=== PATIENT | female | born 1990 | race Caucasian/White ===

== ENCOUNTER 2021-02-23 09:45 | Emergency (ER) | payer OTHER ==
[~2021-02-23] VITALS: Ht 170.2 cm; Wt 68.0 kg
[~2021-02-23 09:45] MED LIST: AMLODIPINE BESY10 MG PO; LABETALOL HCL200 MG PO; LISINOPRIL40 MG PO; LORAZEPAM1 MG PO; TAPAZOLE10 MG PO
[2021-02-23] MEDS ORDERED: METOPROLOL SUCC25 MG PO (10:18)
[2021-02-23] MEDS ORDERED: SUBOXONE 12 MG1 EACH SL (10:19)
[2021-02-23] MEDS ORDERED: BUPRENORP-NALO1 EAC1 SL (10:20)
[2021-02-23] MEDS ORDERED: QUETIAPINE FUM400 M1 PO (10:20)
--- OUTSIDE RECORDS SUMMARY | 2021-02-23 14:27 | XMS ---
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 HAWKINS Security Label Pinker Events No recent Security Events currently on file CRITERIA MET - [facility] - Has Care Guidelines - History of Sepsis Dx CARE PROVIDERS Vero Mccauley Community Health Worker 08/10/2018-Current Nakul Calvert PHONE: [phone] Torri De Leon Nurse Practitioner: Family Michael BORDEN-Bernard PHONE: [phone] Guidelines [facility] [place] Guidelines Date: 12/21/2019 Care Coordination: Receives mental health services with [facility].\T\nbsp; Please contact [facility] regarding mental health concerns. [place] Office: [phone], [place] Office: [phone].\T\nbsp; [facility]: [phone]. E.D. VISIT COUNT (12 MO.) 1 [facility] TOTAL 1 NOTE: Visits indicate total known visits. ED/UCC VISIT TRACKING (12 MO.) 02/23/2021 09:45 [facility] [place] TYPE: Emergency COMPLAINT: - MEDICAL SCREEN INPATIENT VISIT TRACKING (12 MO.) No inpatient visits to display in this time frame [email or web address]
== END 2021-02-24 16:30 ==
LOC: ED 09:45
DX: Z00.8 Encounter for other general examination (principal); Z20.822 Contact with and (suspected) exposure to COVID-19; I10 Essential (primary) hypertension; Z88.8 Allergy status to other drugs, medicaments and biological substances; Z79.899 Other long term (current) drug therapy
CPT/HCPCS: 80053; 80176; 81001; 84443; 84703; 85025; 99285; A9270; C9803; U0003

== ENCOUNTER 2021-03-16 12:49 | Emergency (ER) | payer OTHER ==
[~2021-03-16] VITALS: Ht 170.2 cm; Wt 68.0 kg
[~2021-03-16 12:49] MED LIST changes: +ATIVAN1 MG PO; +BUPRENORP-NALO1 EAC1 SL; +BUPRENORPHINE HC2 MG SL; +FLUOXETINE HCL20 MG PO; +METOPROLOL SUCC25 MG PO; +NORVASC10 MG PO; +QUETIAPINE FUM400 M1 PO; +SUBOXONE 12 MG1 EACH SL; +TOPROL XL25 MG PO; +ZESTRIL10 MG PO
--- OUTSIDE RECORDS SUMMARY | 2021-03-16 12:58 | XMS ---
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 HAWKINS Security Piece Dyeing Machine Tender Events No recent Security Events currently on file CRITERIA MET - [facility] - Has Care Guidelines - History of Sepsis Dx - [facility] - 2 Visits in 30 Days CARE PROVIDERS Vero Mccauley Community Health Worker 08/10/2018-Current Nakul Calvert PHONE: [phone] Torri De Leon Nurse Practitioner: Family Michael DENTON PHONE: [phone] [facility] Guidelines Date: 12/21/2019 Care Coordination: Receives mental health services with [facility].\T\nbsp; Please contact [facility] regarding mental health concerns. [place] Office: , [place] Office: [phone].\T\nbsp; [facility]: [phone]. E.D. VISIT COUNT (12 MO.) 3 [facility] TOTAL 3 NOTE: Visits indicate total known visits. 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 MDD SEVERE W/O PSYCH FEATURES 0. Major depressive disorder, recurrent severe without psychotic features 0. Unspecified psychosis not due to a substance or known physiological condition 1. Major depressive disorder, recurrent severe without psychotic features 1. Generalized anxiety disorder 2. Essential (primary) hypertension 2. Unspecified psychosis not due to a substance or known physiological condition 2. Homicidal ideations 2. Post-traumatic stress disorder, unspecified 2. Major depressive disorder, recurrent severe without psychotic features 2. Disorder of kidney and ureter, unspecified 2. Systemic lupus erythematosus, unspecified [email or web address]
[2021-03-16] MEDS ORDERED: ARIPIPRAZOLE10 MG PO (13:11)
[2021-03-16] MEDS ORDERED: TRAZODONE HCL100 MG PO (13:12)
--- NOTE | 2021-03-17 03:13 | EKG ---
[facility] [address] [place], [place] [address] Signed Sinus tachycardia Otherwise normal ECG When compared with ECG of 10-AUG-2018 05:32, No significant change was found Confirmed by LEAH EGAN MD ([id number]) on 03/17/2021 3:13:26 AM Electronically Signed By: LEAH EGAN MD 03/17/21 0313 PATIENT NAME: CAPRICE HAWKINS Electrocardiogram DATE OF : 89 PHYSICIAN: LEAH EGAN MD REPORT #: [id number] REPORT IS CONFIDENTIAL AND NOT TO BE RELEASED WITHOUT AUTHORIZATION
== END 2021-03-18 16:30 ==
LOC: ED 12:49
DX: F30.2 Manic episode, severe with psychotic symptoms (principal); Z20.822 Contact with and (suspected) exposure to COVID-19; I10 Essential (primary) hypertension; F17.200 Nicotine dependence, unspecified, uncomplicated; Z88.8 Allergy status to other drugs, medicaments and biological substances; Z79.899 Other long term (current) drug therapy
CPT/HCPCS: 80053; 80176; 81001; 84443; 84703; 85025; 93005; 93010; 96372; 99285-25; C9803; J1630; U0003

== ENCOUNTER 2023-04-21 12:47 | Emergency (ER) | payer OTHER ==
[~2023-04-21] VITALS: Ht 170.2 cm; Wt 88.0 kg
[~2023-04-21 12:47] MED LIST changes: +ARIPIPRAZOLE10 MG PO; +TRAZODONE HCL100 MG PO
--- OUTSIDE RECORDS SUMMARY | 2023-04-21 12:50 | XMS ---
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 HAWKINS Security Tours Captain Events No recent Security Events currently on file CRITERIA MET - [facility] CARE PROVIDERS -[place]- Dentist: Belt [facility] PHONE: [phone] Nimisha Valiente Nurse Practitioner: Family 03/17/2021-Current PHONE: Unknown Vero Mccauley Community Health Worker 08/10/2018-Nakul Mullins PHONE: [phone] Torri De Leon Nurse Practitioner: Family Michael BORDEN-Bernard PHONE: Unknown LOUIS CARO Nurse Practitioner: Family Current PHONE: [phone] Care Guidelines exist [facility] the following facilities[facility] VISIT COUNT (12 MO.) 1 [facility] TOTAL 1 NOTE: Visits indicate total known visits. ED/UCC VISIT TRACKING (12 MO.) 04/21/2023 12:[address] [facility] [place] TYPE: Emergency COMPLAINT: - MEDICAL CLEARANCE INPATIENT VISIT TRACKING (12 MO.) No inpatient visits to display in this time frame [id number]
[2023-04-21] MEDS ORDERED: DEXTROAMP-AMPHE15 MG PO (13:03)
[2023-04-21] MEDS ORDERED: LISINOPRIL40 MG PO (13:04)
[2023-04-21] MEDS ORDERED: ALPRAZOLAM0.5 MG PO (13:05)
[2023-04-21] MEDS ORDERED: BUPRENORPHINE-1 EACH SL (13:08)
[2023-04-22 18:49] VITALS: BP 146/99
== END 2023-04-22 18:48 ==
LOC: ED 12:47
DX: F25.9 Schizoaffective disorder, unspecified (principal); F31.9 Bipolar disorder, unspecified; I10 Essential (primary) hypertension; F17.200 Nicotine dependence, unspecified, uncomplicated; Z88.8 Allergy status to other drugs, medicaments and biological substances; Z20.822 Contact with and (suspected) exposure to COVID-19; Z79.899 Other long term (current) drug therapy
CPT/HCPCS: 36415; 80053; 81001; 84443; 84703; 85025; A9270; C9803; G0480; U0002

== ENCOUNTER → 2023-05-13 | Emergency (ER) | payer OTHER ==
[~2023-05-13] VITALS: Ht 170.2 cm; Wt 88.0 kg
[~2023-05-13] MED LIST changes: +ALPRAZOLAM0.5 MG PO; +BUPRENORPHINE-1 EACH SL; +DEXTROAMP-AMPHE15 MG PO
--- OUTSIDE RECORDS SUMMARY | ~2023-05-13 | XMS | Continuity of Care Document ---
Demographics + + + | Address | [address] | | | [place] [address] | + + + | Preferred Language | Unknown | + + + | Marital Status | Never | + + + | Nondenominational Affiliation | Unknown | + + + | Race | White | + + + | Ethnic Group | Not or | + + + Author + + + | Author | [facility] | + + + | Organization | [facility] | + + + | Address | [address] | | | [place] [address] | + + + | Phone | | + + + Care Team Providers + + + + | Care Accounts Receivable Collector Name | Role | Phone | + [...] | 2023-04-22 00:00 | Buprenorphine HCl/Naloxone | [facility] | | | HCl | | + + + + | 2023-04-22 00:00 | LORAZEPAM | [facility] | + + + + | 2023-04-22 00:00 | Buprenorphine HCl/Naloxone | [facility] | | | HCl | | + + + + | 2023-04-22 00:00 | BUPRENORPHINE HCL/NALOXONE | [facility] | | | HCL | | + + + + | 2023-04-22 00:00 | LISINOPRIL | [facility] | + + + + | 2023-04-22 00:00 | LORAZEPAM | [facility] | + + + + | 2023-04-22 00:00 | METHIMAZOLE | [facility] | + + + + | 2023-04-22 00:00 | AMLODIPINE BESYLATE | [facility] | + + + + | 2023-04-22 00:00 | ALPRAZOLAM | [facility] | + + + + | 2023-04-22 00:00 | AMLODIPINE BESYLATE | [facility] | + + + + | 2023-04-22 00:00 | Quetiapine Fumarate | [facility] | + + + + | 2023-04-22 00:00 | AMPHET ASP/AMPHET/D-AMPHET | [facility] | | | | | + + + + | 2023-04-22 00:00 | METOPROLOL SUCCINATE | [facility] | + + + + | 2023-04-22 00:00 | METOPROLOL SUCCINATE | [facility] | + + + + | 2023-04-22 00:00 | LABETALOL HCL | [facility] | + + + + Problems + + + + | date | description | facility | + + + + | 2018-08-10 00:00 | Polysubstance abuse | [facility] | + + + + | 2018-08-10 00:00 | Palpitations | [facility] | + + + + | 2021-03-04 00:00 | Hypertension | [facility] | + + + + | 2021-03-04 00:00 | History of schizophrenia | [facility] | + + + + | 2021-03-16 00:00 | Psychosis | [facility] | + + + + | 2021-03-16 00:00 | Manic state | [facility] | + + + + | 2023-04-21 00:00 | Schizoaffective disorder | [facility] | + + + + | 2023-04-21 00:00 | Bipolar I disorder | [facility] | + + + + | [...] + + | 2023-04-21 12:48 | OTHER NURSING HOME (CURRENT) | [facility] | | | DRUG THERAPY | | + + + + | 2023-04-21 12:48 | ALLERGY STATUS TO OTH | [facility] | | | DRUG/MEDS/BIOL SUBST STATUS | | | | | | + + + + Procedures No [...] 2 | + + + + + + + + + | | 2023-04-21 | [facility] | (missing) | (missing) | | (unavailable | [facility] | | | | + + + + + + + + + | Result panel 3 | + + + + + + [...] 6 | + + + + + +---------+ + + | | 2023-04-21 | [facility] | 1.025 | (missing) | (missing) | | (unavailable | [facility] | | | | + + + +---------+ + + + + | Result panel 7 | + + + + + + + + + | | 2023-04-21 | [facility] | TRACE-I | (missing) | (missing) | | (unavailable | [facility] | | | | + + + + + + + + + | Result panel 8 | + + + + + +-------+ + + | | 2023-04-21 | [facility] | 5.5 | (missing) | (missing) | | (unavailable | [facility] | | | | + + + +-------+ + + + + | Result panel 9 | + + + + + +---------+ + + | | 2023-04-21 | [facility] | >=300 | (missing) | (missing) | | (unavailable | 13:: [facility] | | | | [...] 13 | + + + + + +-------+ + + | | 2023-04-21 | [facility] | 0-1 | (missing) | (missing) | | (unavailable | [facility] | | | | + + + +-------+ + + + + | Result panel 14 | + + + + + +-------+ [...] 18 | + + + + + +------+ [...] 20 | + + + + + +------+ [...] 29 | + + + + + + [...] 31 | + + + + + + + + + | | 2023-04-21 | [facility] | NEGATIVE | (missing) | (missing) | | (unavailable | [facility] | | | | + + + + + + + + + | Result panel 32 | + + + + + + [...] 35 | + + + + + +-------+ + + | | 2023-04-21 | [facility] | 5.6 | (missing) | (missing) | | (unavailable | [facility] | | | | + + + +-------+ + + + + | Result panel 36 | + + + + + +--------+ + + | | 2023-04-21 | [facility] | 70.7 | (missing) | (missing) | | (unavailable | [facility] | | | | + + + +--------+ + + + + | Result panel 37 | + + + + + +--------+ + + | | 2023-04-21 | [facility] | 21.4 | (missing) | (missing) | | (unavailable | [facility]07 [facility] | | | | + + + +--------+ + + + + | Result panel 38 | + + + + + +-------+ + + | | 2023-04-21 | [facility] | 7.3 | (missing) | (missing) | | (unavailable | [facility]21:07 [facility] | | | | + + + +-------+ + + + + | Result panel 39 | + + + + + +-------+ [...] 41 | + + + + + +--------+ + + | | 2023-04-21 | [facility] | 4.33 | (missing) | (missing) | | (unavailable | [facility]21:07 [facility] | | | | + + + +--------+ + + + + | Result panel 42 | + + + + + +--------+ + + | | 2023-04-21 | [facility] | 12.1 | (missing) | (missing) | | (unavailable | [facility]21:07 [facility] | | | | + + + +--------+ + + + + | Result panel 43 | + + + + + +-------+---------+ + | | 2023-04-21 | [facility] | 106 | mg/dL | (missing) | | (unavailable | 13:21:07 [facility] | | | | + + + +-------+---------+ + + + | Result panel 44 | + + + + + +------+---------+ + | | 2023-04-21 | [facility] | 40 | mg/dL | (missing) | | (unavailable | [facility]:21:07 [facility] | | | | + + + +------+---------+ + + + | Result panel 45 | + + + + + +--------+---------+ + | | 2023-04-21 | [facility] | 1.25 | mg/dL | (missing) | | (unavailable | [facility] | | | | + + + +--------+---------+ + + + | Result panel 46 | + + + + + +------+ + + | | 2023-04-21 | [facility] | 59 | (missing) | (missing) | | (unavailable | [facility]21:07 [facility] | | | | + + + +------+ + + + + | Result panel 47 | + + + + + +--------+ + + | | 2023-04-21 | [facility] | 37.0 | (missing) | (missing) | | (unavailable | [facility]21:07 [facility] | | | | + + + +--------+ + + + + | Result panel 48 | + + + + + +---------+ + + | | 2023-04-21 | [facility] | 32.00 | (missing) | (missing) | | (unavailable | [facility]21:07 [facility] | | | | + + + +---------+ + + + + | Result panel 49 | + + + + + +-------+ [...] 51 | + + + + + +-------+ [...] 53 | + + + + + +--------+ + + | | 2023-04-21 | [facility] | 13.9 | (missing) | (missing) | | (unavailable | : [facility] | | | | + + + +--------+ + + + + | Result panel 54 | + + + + + +-------+---------+ + | | 2023-04-21 | [facility] | 9.0 | mg/dL | (missing) | | (unavailable | :07 [facility] | | | | + + + +-------+---------+ + + + | Result panel 55 | + + + + + +-------+ + + | | 2023-04-21 | [facility] | 7.6 | (missing) | (missing) | | (unavailable | 13::07 [facility] | | | | + + + +-------+ + + + + | Result panel 56 | + + + + + +-------+ + + | | 2023-04-21 | [facility] | 3.3 | (missing) | (missing) | | (unavailable | 13::07 [facility] | | | | + + + +-------+ + + + + | Result panel 57 | + + + + + +-------+ + + | | 2023-04-21 | [facility] | 4.3 | (missing) | (missing) | | (unavailable | [facility]21:07 [facility] | | | | + + + +-------+ + + + + | Result panel 58 | + + + + + +--------+ + + | | 2023-04-21 | [facility] | 85.4 | (missing) | (missing) | | (unavailable | [facility]21:07 [facility] | | | | + + + +--------+ + + + + | Result panel 59 | + + + + + +--------+ + + | | 2023-04-21 | [facility] | 0.77 | (missing) | (missing) | | (unavailable | [facility]21:07 [facility] | | | | + + + +--------+ + + + + | Result panel 60 | + + + + + +-------+ + + | | 2023-04-21 | [facility] | 0.3 | (missing) | (missing) | | (unavailable | [facility]21:07 [facility] | | | | + + + +-------+ + + + + | Result panel 61 | + + + + + +------+ + + | | 2023-04-21 | [facility] | 36 | (missing) | (missing) | | (unavailable | [facility]21:07 [facility] | | | | + + + +------+ + + + + | Result panel 62 | + + + + + +------+ + + | | 2023-04-21 | [facility] | 43 | (missing) | (missing) | | (unavailable | [facility]21:07 [facility] | | | | + + + +------+ + + + + | Result panel 63 | + + + + + +------+ + + | | 2023-04-21 | [facility] | 67 | (missing) | (missing) | | (unavailable | [facility]21:07 [facility] | | | | + + + +------+ + + + + | Result panel 64 | + + + + + +---------+ + + | | 2023-04-21 | [facility] | 1.869 | (missing) | (missing) | | (unavailable | [facility]21:07 [facility] | | | | + + + +---------+ + + + + | Result panel 65 | + + + + + + + + + | | 2023-04-21 | [facility] | NEGATIVE | (missing) | (missing) | | (unavailable | 13::07 [facility] | | | | + + + + + + + + + | Result panel 66 | + + + + + +-----+ + + | | 2023-04-21 | [facility] | 0 | (missing) | (missing) | | (unavailable | [facility]21:07 [facility] | | | | + + + +-----+ + + + + | Result panel 67 | + + + + + +------+ + + | | 2023-04-21 | [facility] | // | (missing) | (missing) | | (unavailable | [facility]21:07 [facility] | | | | + + + +------+ + + + + | Result panel 68 | + + + + + +-------+---------+ + | | 2023-04-21 | [facility] | 1.8 | mg/dL | (missing) | | (unavailable | [facility]:21:07 [facility] | | | | + + + +-------+---------+ + + + | Result panel 69 | + + + + + +--------+ + + | | 2023-04-21 | [facility] | 27.8 | (missing) | (missing) | | (unavailable | [facility]::07 [facility] | | | | + + + +--------+ + + + + | Result panel 70 | + + + + + +------+ + + | | 2023-04-21 | [facility] | // | (missing) | (missing) | | (unavailable | 13::07 [facility] | | | | + + + +------+ + + + + | Result panel 71 | + + + + + +------+ + + | | 2023-04-21 | [facility] | <3 | (missing) | (missing) | | (unavailable | [facility]21:07 [facility] | | | | + + + +------+ + + + + | Result panel 72 | + + + + + +--------+ + + | | 2023-04-21 | [facility] | 32.6 | (missing) | (missing) | | (unavailable | [facility]21[facility]07 [facility] | | | | + + + +--------+ + + + + | Result panel 73 | + + + + + +--------+ [...]
--- OUTSIDE RECORDS SUMMARY | ~2023-05-13 | XMS | Continuity of Care Document ---
Demographics + + + | Address | [address] | | | [place] [address] | + + + | Preferred Language | Unknown | + + + | Marital Status | Never | + + + | Gnosticism Affiliation | Unknown | + + + | Race | White | + + + | Ethnic Group | Not or | + + + Author + + + | Author | [facility] | + + + | Organization | [facility] | + + + | Address | [address] | | | [place] [address] | + + + | Phone | | + + + Care Team Providers + + + + | Care Cleaning Machine Operator Name | Role | Phone | + [...] | 2023-04-22 00:00 | Buprenorphine HCl/Naloxone | [facility] | | | HCl | | + + + + | 2023-04-22 00:00 | LORAZEPAM | [facility] | + + + + | 2023-04-22 00:00 | Buprenorphine HCl/Naloxone | [facility] | | | HCl | | + + + + | 2023-04-22 00:00 | BUPRENORPHINE HCL/NALOXONE | [facility] | | | HCL | | + + + + | 2023-04-22 00:00 | LISINOPRIL | [facility] | + + + + | 2023-04-22 00:00 | LORAZEPAM | [facility] | + + + + | 2023-04-22 00:00 | METHIMAZOLE | [facility] | + + + + | 2023-04-22 00:00 | AMLODIPINE BESYLATE | [facility] | + + + + | 2023-04-22 00:00 | ALPRAZOLAM | [facility] | + + + + | 2023-04-22 00:00 | AMLODIPINE BESYLATE | [facility] | + + + + | 2023-04-22 00:00 | Quetiapine Fumarate | [facility] | + + + + | 2023-04-22 00:00 | AMPHET ASP/AMPHET/D-AMPHET | [facility] | | | | | + + + + | 2023-04-22 00:00 | METOPROLOL SUCCINATE | [facility] | + + + + | 2023-04-22 00:00 | METOPROLOL SUCCINATE | [facility] | + + + + | 2023-04-22 00:00 | LABETALOL HCL | [facility] | + + + + Problems + + + + | date | description | facility | + + + + | 2018-08-10 00:00 | Polysubstance abuse | [facility] | + + + + | 2018-08-10 00:00 | Palpitations | [facility] | + + + + | 2021-03-04 00:00 | Hypertension | [facility] | + + + + | 2021-03-04 00:00 | History of schizophrenia | [facility] | + + + + | 2021-03-16 00:00 | Psychosis | [facility] | + + + + | 2021-03-16 00:00 | Manic state | [facility] | + + + + | 2023-04-21 00:00 | Schizoaffective disorder | [facility] | + + + + | 2023-04-21 00:00 | Bipolar I disorder | [facility] | + + + + | [...] + + | 2023-04-21 12:48 | OTHER INTERMEDIATE (CURRENT) | [facility] | | | DRUG [...]
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
--- NOTE | 2023-05-16 08:52 | NUR ---
MANAGER SALES TRAINING ENTERED ROOM TO TAKE PT VITALS. PT STATED, "NOT HAPPENING," UPON ENTERING PT ROOM. WILL CONTINUE TO MONITOR.
--- NOTE | 2023-05-16 14:17 | NUR ---
PT REQUESTED A SHOWER. TWO WANT AD CLERK UTILIZED TO ASSIST WITH SHOWER IN DECONTAMINATION ROOM. ONE WANT AD CLERK MONITORED OUTSIDE DOOR AND THE OTHER WANT AD CLERK MONITORED THE INSIDE DOOR. AN ODOR WAS COMING FROM THE SHOWER ROOM. PT DEFECATED IN THE SHOWER. PT ASSISTED BACK TO PT ROOM. NURSE NOTIFIED OF PT BEHAVIOR. WILL CONTINUE TO MONITOR.
[2023-05-16 17:01] VITALS: BP 137/94
== END ==
LOC: ED 13:23
DX: F31.9 Bipolar disorder, unspecified (principal); I10 Essential (primary) hypertension; F17.200 Nicotine dependence, unspecified, uncomplicated; Z79.899 Other long term (current) drug therapy; Z88.8 Allergy status to other drugs, medicaments and biological substances; Z20.822 Contact with and (suspected) exposure to COVID-19
CPT/HCPCS: 36415; 80053; 81001; 84443; 84703; 85025; A9270; C9803; G0480; U0002

== ENCOUNTER 2023-05-21 10:12 | Emergency (ER) | payer OTHER ==
[~2023-05-21] VITALS: Ht 170.2 cm; Wt 88.0 kg
--- OUTSIDE RECORDS SUMMARY | ~2023-05-21 | XMS | Continuity of Care Document ---
Demographics + + + | Address | [address] | | | [place] [address] | + + + | Preferred Language | Unknown | + + + | Marital Status | Never | + + + | Cheondoism Affiliation | Unknown | + + + | Race | White | + + + | Ethnic Group | Not or | + + + Author + + + | Author | [facility] | + + + | Organization | [facility] | + + + | Address | [address] | | | [place] [address] | + + + | Phone | | + + + Care Team Providers + + + + | Care Address Change Clerk Name | Role | Phone | + + + + Unavailable | Unavailable | + + + + Unavailable | Unavailable | + + + + Unavailable | Unavailable | + + + + Allergies and Intolerances + + + + + + | date | description | facility | reaction | severity | + + + + + + | (no date) | Hydralazine | [facility] | (no reaction) | (no severity) | [facility] | | | + + + + + + | (no date) | Mild | [facility] | (no reaction) | (no severity) | [facility] | | | + + + + + + | (no date) | Hydralazine | [facility] | (no reaction) | (no severity) | [facility] | | | + + + + + + | (no date) | Hydralazine | [facility] | (no reaction) | (no severity) | [facility] | | | + + + + + + | (no date) | Palpitations | [facility] | (no reaction) | (no severity) | [facility] | | | + + + + + + | (no date) | hydralazine | [facility] | (no reaction) | (no severity) | + + + + + + Encounters No information. Functional Status No information. Immunizations No information. Medications + + + + | date | description | facility | + + + + | 2023-04-22 00:00 | Buprenorphine HCl/Naloxone | [facility] | | | HCl | | + + + + | 2023-05-17 00:00 | Buprenorphine HCl/Naloxone | [facility] | | | HCl | | + + + + | 2023-04-22 00:00 | LORAZEPAM | [facility] | + + + + | 2023-05-17 00:00 | LORAZEPAM | [facility] | + + + + | 2023-04-22 00:00 | Buprenorphine HCl/Naloxone | [facility] | | | HCl | | + + + + | 2023-05-17 00:00 | Buprenorphine HCl/Naloxone | [facility] | | | HCl | | + + + + | 2023-04-22 00:00 | BUPRENORPHINE HCL/NALOXONE | [facility] | | | HCL | | + + + + | 2023-05-17 00:00 | BUPRENORPHINE HCL/NALOXONE | [facility] | | | HCL | | + + + + | 2023-04-22 00:00 | LISINOPRIL | [facility] | + + + + | 2023-05-17 00:00 | LISINOPRIL | [facility] | + + + + | 2023-04-22 00:00 | LORAZEPAM | [facility] | + + + + | 2023-05-17 00:00 | LORAZEPAM | [facility] | + + + + | 2023-04-22 00:00 | METHIMAZOLE | [facility] | + + + + | 2023-05-17 00:00 | METHIMAZOLE | [facility] | + + + + | 2023-04-22 00:00 | AMLODIPINE BESYLATE | [facility] | + + + + | 2023-05-17 00:00 | AMLODIPINE BESYLATE | [facility] | + + + + | 2023-04-22 00:00 | ALPRAZOLAM | [facility] | + + + + | 2023-05-17 00:00 | ALPRAZOLAM | [facility] | + + + + | 2023-04-22 00:00 | AMLODIPINE BESYLATE | [facility] | + + + + | 2023-05-17 00:00 | AMLODIPINE BESYLATE | [facility] | + + + + | 2023-05-17 00:00 | BUPRENORPHINE HCL | [facility] | + + + + | 2023-04-22 00:00 | Quetiapine Fumarate | [facility] | + + + + | 2023-05-17 00:00 | Quetiapine Fumarate | [facility] | + + + + | 2023-04-22 00:00 | AMPHET ASP/AMPHET/D-AMPHET | [facility] | | | | | + + + + | 2023-05-17 00:00 | AMPHET ASP/AMPHET/D-AMPHET | [facility] | | | | | + + + + | 2023-04-22 00:00 | METOPROLOL SUCCINATE | [facility] | + + + + | 2023-05-17 00:00 | METOPROLOL SUCCINATE | [facility] | + + + + | 2023-04-22 00:00 | METOPROLOL SUCCINATE | [facility] | + + + + | 2023-05-17 00:00 | METOPROLOL SUCCINATE | [facility] | + + + + | 2023-04-22 00:00 | LABETALOL HCL | [facility] | + + + + | 2023-05-17 00:00 | LABETALOL HCL | [facility] | + + + + Problems + + + + | date | description | facility | + + + + | 2018-08-10 00:00 | Polysubstance abuse | [facility] | + + + + | 2018-08-10 00:00 | Polysubstance abuse | [facility] | + + + + | 2018-08-10 00:00 | Palpitations | [facility] | + + + + | 2018-08-10 00:00 | Palpitations | [facility] | + + + + | 2021-03-04 00:00 | Hypertension | [facility] | + + + + | 2021-03-04 00:00 | Hypertension | [facility] | + + + + | 2021-03-04 00:00 | History of schizophrenia | [facility] | + + + + | 2021-03-04 00:00 | History of schizophrenia | [facility] | + + + + | 2021-03-16 00:00 | Psychosis | [facility] | + + + + | 2021-03-16 00:00 | Psychosis | [facility] | + + + + | 2021-03-16 00:00 | Manic state | [facility] | + + + + | 2021-03-16 00:00 | Manic state | [facility] | + + + + | 2023-04-21 00:00 | Schizoaffective disorder | [facility] | + + + + | 2023-04-21 00:00 | Schizoaffective disorder | [facility] | + + + + | 2023-04-21 00:00 | Bipolar I disorder | [facility] | + + + + | 2023-04-21 00:00 | Bipolar I disorder | [facility] | + + + + | 2023-04-21 12:48 | NICOTINE DEPENDENCE, | [facility] | | | UNSPECIFIED, UNCOMPLICATED | | + + + + | 2023-04-21 12:48 | SCHIZOAFFECTIVE DISORDER, | [facility] | | | UNSPECIFIED | | + + + + | 2023-04-21 12:48 | BIPOLAR DISORDER, | [facility] | | | UNSPECIFIED | | + + + + | 2023-04-21 12:48 | Essential (primary) | [facility] | | | hypertension | | + + + + | 2023-04-21 12:48 | SUICIDAL IDEATIONS | [facility] | + + + + | 2023-04-21 12:48 | OTHER CUTTER IN (CURRENT) | [facility] | | | DRUG THERAPY | | + + + + | 2023-04-21 12:48 | ALLERGY STATUS TO OTH | [facility] | | | DRUG/MEDS/BIOL SUBST STATUS | | | | | | + + + + | 2023-05-13 13:24 | NICOTINE DEPENDENCE, | [facility] | | | UNSPECIFIED, UNCOMPLICATED | | + + + + | 2023-05-13 13:24 | BIPOLAR DISORDER, | [facility] | | | UNSPECIFIED | | + + + + | 2023-05-13 13:24 | Essential (primary) | [facility] | | | hypertension | | + + + + | 2023-05-13 13:24 | OTHER [facility] (CURRENT) | [facility] | | | DRUG THERAPY | | + + + + | 2023-05-13 13:24 | ALLERGY STATUS TO OTH | [facility] | | | DRUG/MEDS/BIOL SUBST STATUS | | | | | | + + + + | 2023-05-15 00:00 | Bipolar disorder | [facility] | + + + + Procedures No information. Results/Labs +--------+--------+ +---------+--------+---------+ | test | date | facility | value | unit | notes | +--------+--------+ +---------+--------+---------+ + + | Result panel 1 | + + + + + + + + + | | 2023-04-21 | [facility] | NEGATIVE | (missing) | (missing) | | (unavailable | [facility] | | | + + + + + + + + + | Result panel 2 | + + + + + +-------+ + + | | 2023-04-21 | [facility] | 0-1 | (missing) | (missing) | | (unavailable | [facility] | | | | + + + +-------+ + + + + | Result panel 3 | + + + + + +-------+ + + | | 2023-04-21 | [facility] | 0-1 | (missing) | (missing) | | (unavailable | [facility] | | | | + + + +-------+ + + + + | Result panel 4 | + + + + + + + + + | | 2023-04-21 | [facility] | SQUAMOUS 3+ | (missing) | (missing) | | (unavailable | [facility] | | | | + + + + + + + + + | Result panel 5 | + + + + + + + + + | | 2023-04-21 | [facility] | | (missing) | (missing) | | (unavailable | [facility]07 [facility] | 1+ | | | + + + + + + + + + | Result panel 6 | + + + + + + + + + | | 2023-04-21 | [facility] | NONE SEEN | (missing) | (missing) | | (unavailable | [facility] | | | + + + + + + + + + | Result panel 7 | + + + + + +------+ + + | | 2023-04-21 | [facility] | 1+ | (missing) | (missing) | | (unavailable | [facility] | | | | + + + +------+ + + + + | Result panel 8 | + + + + + + + + + | | 2023-04-21 | [facility] | NONE SEEN | (missing) | (missing) | | (unavailable | [facility] | | | + + + + + + + + + | Result panel 9 | + + + + + +------+ + + | | 2023-04-21 | [facility] | No | (missing) | (missing) | | (unavailable | [facility] | | | | + + + +------+ + + + + | Result panel 10 | + + + + + + + + + | | 2023-04-21 | [facility] | CLEAN CATCH | (missing) | (missing) | | (unavailable | [facility] | | | | + + + + + + + + + | Result panel 11 | + + + + + + + + + | | 2023-04-21 | [facility] | NEGATIVE | (missing) | (missing) | | (unavailable | [facility] | | | | + + + + + + + + + | Result panel 12 | + + + + + + + + + | | 2023-04-21 | [facility] | POSITIVE | (missing) | (missing) | | (unavailable | [facility] | | | | + + + + + + + + + | Result panel 13 | + + + + + + + + + | | 2023-04-21 | [facility] | NEGATIVE | (missing) | (missing) | | (unavailable | [facility] | | | | + + + + + + + + + | Result panel 14 | + + + + + + + + + | | 2023-04-21 | [facility] | NEGATIVE | (missing) | (missing) | | (unavailable | [facility] | | | | + + + + + + + + + | Result panel 15 | + + + + + + + + + | | 2023-04-21 | [facility] | NEGATIVE | (missing) | (missing) | | (unavailable | [facility] | | | | + + + + + + + + + | Result panel 16 | + + + + + + + + + | | 2023-04-21 | [facility] | NEGATIVE | (missing) | (missing) | | (unavailable | [facility] | | | | + + + + + + + + + | Result panel 17 | + + + + + + + + + | | 2023-04-21 | [facility] | NEGATIVE | (missing) | (missing) | | (unavailable | [facility] | | | | + + + + + + + + + | Result panel 18 | + + + + + + + + + | | 2023-04-21 | [facility] | NEGATIVE | (missing) | (missing) | | (unavailable | [facility] | | | | + + + + + + + + + | Result panel 19 | + + + + + + + + + | | 2023-04-21 | [facility] | NEGATIVE | (missing) | (missing) | | (unavailable | [facility] | | | | + + + + + + + + + | Result panel 20 | + + + + + + + + + | | 2023-04-21 | [facility] | NEGATIVE | (missing) | (missing) | | (unavailable | [facility] | | | | + + + + + + + + + | Result panel 21 | + + + + + + + + + | | 2023-04-21 | [facility] | NEGATIVE | (missing) | (missing) | | (unavailable | [facility] | | | | + + + + + + + + + | Result panel 22 | + + + + + + + + + | | 2023-04-21 | [facility] | NEGATIVE | (missing) | (missing) | | (unavailable | [facility] | | | | + + + + + + + + + | Result panel 23 | + + + + + + + + + | | 2023-04-21 | [facility] | POSITIVE | (missing) | (missing) | | (unavailable | [facility] | | | | + + + + + + + + + | Result panel 24 | + + + + + + + + + | | 2023-04-21 | [facility] | YELLOW | (missing) | (missing) | | (unavailable | [facility] | | | | + + + + + + + + + | Result panel 25 | + + + + + + + + + | | 2023-04-21 | [facility] | SL CLOUDY | (missing) | (missing) | | (unavailable | [facility] | | | | + + + + + + + + + | Result panel 26 | + + + + + + + + + | | 2023-04-21 | [facility] | NEGATIVE | (missing) | (missing) | | (unavailable | [facility] | | | | + + + + + + + + + | Result panel 27 | + + + + + + + + + | | 2023-04-21 | [facility] | NEGATIVE | (missing) | (missing) | | (unavailable | [facility] | | | | + + + + + + + + + | Result panel 28 | + + + + + + + + + | | 2023-04-21 | [facility] | NEGATIVE | (missing) | (missing) | | (unavailable | [facility] | | | | + + + + + + + + + | Result panel 29 | + + + + + +---------+ + + | | 2023-04-21 | [facility] | 1.025 | (missing) | (missing) | | (unavailable | [facility] | | | | + + + +---------+ + + + + | Result panel 30 | + + + + + + + + + | | 2023-04-21 | [facility] | TRACE-I | (missing) | (missing) | | (unavailable | [facility] | | | | + + + + + + + + + | Result panel 31 | + + + + + +-------+ + + | | 2023-04-21 | [facility] | 5.5 | (missing) | (missing) | | (unavailable | [facility]07 [facility] | | | | + + + +-------+ + + + + | Result panel 32 | + + + + + +---------+ + + | | 2023-04-21 | [facility] | >=300 | (missing) | (missing) | | (unavailable | [facility] | | | | + + + +---------+ + + + + | Result panel 33 | + + + + + + + + + | | 2023-04-21 | [facility] | NORMAL | (missing) | (missing) | | (unavailable | [facility] | | | | + + + + + + + + + | Result panel 34 | + + + + + + + + + | | 2023-04-21 | [facility] | NEGATIVE | (missing) | (missing) | | (unavailable | [facility] | | | + + + + + + + + + | Result panel 35 | + + + + + +-------+---------+ + | | 2023-04-21 | [facility] | 106 | mg/dL | (missing) | | (unavailable | 13::07 [facility] | | | | + + + +-------+---------+ + + + | Result panel 36 | + + + + + +------+---------+ + | | 2023-04-21 | [facility] | 40 | mg/dL | (missing) | | (unavailable | [facility] | | | | + + + +------+---------+ + + + | Result panel 37 | + + + + + +--------+---------+ + | | 2023-04-21 | [facility] | 1.25 | mg/dL | (missing) | | (unavailable | [facility]::07 [facility] | | | | + + + +--------+---------+ + + + | Result panel 38 | + + + + + +------+ + + | | 2023-04-21 | [facility] | 59 | (missing) | (missing) | | (unavailable | [facility]:07 [facility] | | | | + + + +------+ + + + + | Result panel 39 | + + + + + +---------+ + + | | 2023-04-21 | [facility] | 32.00 | (missing) | (missing) | | (unavailable | [facility] | | | | + + + +---------+ + + + + | Result panel 40 | + + + + + +-------+ + + | | 2023-04-21 | [facility] | 136 | (missing) | (missing) | | (unavailable | [facility]07 [facility] | | | | + + + +-------+ + + + + | Result panel 41 | + + + + + +-------+ + + | | 2023-04-21 | [facility] | 3.9 | (missing) | (missing) | | (unavailable | [facility] | | | | + + + +-------+ + + + + | Result panel 42 | + + + + + +-------+ + + | | 2023-04-21 | [facility] | 104 | (missing) | (missing) | | (unavailable | [facility]:07 [facility] | | | | + + + +-------+ + + + + | Result panel 43 | + + + + + +------+ + + | | 2023-04-21 | [facility] | 22 | (missing) | (missing) | | (unavailable | [facility] | | | | + + + +------+ + + + + | Result panel 44 | + + + + + +--------+ + + | | 2023-04-21 | [facility] | 13.9 | (missing) | (missing) | | (unavailable | [facility] | | | | + + + +--------+ + + + + | Result panel 45 | + + + + + +-------+---------+ + | | 2023-04-21 | [facility] | 9.0 | mg/dL | (missing) | | (unavailable | [facility] | | | | + + + +-------+---------+ + + + | Result panel 46 | + + + + + +-------+ + + | | 2023-04-21 | [facility] | 7.6 | (missing) | (missing) | | (unavailable | [facility] | | | | + + + +-------+ + + + + | Result panel 47 | + + + + + +-------+ + + | | 2023-04-21 | [facility] | 3.3 | (missing) | (missing) | | (unavailable | [facility] | | | | + + + +-------+ + + + + | Result panel 48 | + + + + + +-------+ + + | | 2023-04-21 | [facility] | 4.3 | (missing) | (missing) | | (unavailable | [facility] | | | + + + +-------+ + + + + | Result panel 49 | + + + + + +--------+ + + | | 2023-04-21 | [facility] | 0.77 | (missing) | (missing) | | (unavailable | [facility] | | | + + + +--------+ + + + + | Result panel 50 | + + + + + +-------+ + + | | 2023-04-21 | [facility] | 0.3 | (missing) | (missing) | | (unavailable | [facility] | | | + + + +-------+ + + + + | Result panel 51 | + + + + + +------+ + + | | 2023-04-21 | [facility] | 36 | (missing) | (missing) | | (unavailable | [facility] | | | + + + +------+ + + + + | Result panel 52 | + + + + + +------+ + + | | 2023-04-21 | [facility] | 43 | (missing) | (missing) | | (unavailable | [facility] | | | | + + + +------+ + + + + | Result panel 53 | + + + + + +------+ + + | | 2023-04-21 | [facility] | 67 | (missing) | (missing) | | (unavailable | [facility] | | | | + + + +------+ + + + + | Result panel 54 | + + + + + +---------+ + + | | 2023-04-21 | [facility] | 1.869 | (missing) | (missing) | | (unavailable | [facility] | | | | + + + +---------+ + + + + | Result panel 55 | + + + + + + + + + | | 2023-04-21 | [facility] | NEGATIVE | (missing) | (missing) | | (unavailable | [facility] | | | | + + + + + + + + + | Result panel 56 | + + + + + +-----+ + + | | 2023-04-21 | [facility] | 0 | (missing) | (missing) | | (unavailable | [facility]:07 [facility] | | | | + + + +-----+ + + + + | Result panel 57 | + + + + + +------+ + + | | 2023-04-21 | [facility] | // | (missing) | (missing) | | (unavailable | [facility] | | | | + + + +------+ + + + + | Result panel 58 | + + + + + +-------+---------+ + | | 2023-04-21 | [facility] | 1.8 | mg/dL | (missing) | | (unavailable | [facility] | | | | + + + +-------+---------+ + + + | Result panel 59 | + + + + + +------+ + + | | 2023-04-21 | [facility] | // | (missing) | (missing) | | (unavailable | [facility] | | | | + + + +------+ + + + + | Result panel 60 | + + + + + +------+ + + | | 2023-04-21 | [facility] | <3 | (missing) | (missing) | | (unavailable | [facility] | | | | + + + +------+ + + + + | Result panel 61 | + + + + + +-------+ + + | | 2023-04-21 | [facility] | 5.6 | (missing) | (missing) | | (unavailable | [facility] | | | | + + + +-------+ + + + + | Result panel 62 | + + + + + +--------+ + + | | 2023-04-21 | [facility] | 4.33 | (missing) | (missing) | | (unavailable | [facility] | | | + + + +--------+ + + + + | Result panel 63 | + + + + + +--------+ + + | | 2023-04-21 | [facility] | 12.1 | (missing) | (missing) | | (unavailable | [facility] | | | + + + +--------+ + + + + | Result panel 64 | + + + + + +--------+ + + | | 2023-04-21 | [facility] | 37.0 | (missing) | (missing) | | (unavailable | [facility]07 [facility] | | | | + + + +--------+ + + + + | Result panel 65 | + + + + + +--------+ + + | | 2023-04-21 | [facility] | 85.4 | (missing) | (missing) | | (unavailable | [facility]::07 [facility] | | | | + + + +--------+ + + + + | Result panel 66 | + + + + + +--------+ + + | | 2023-04-21 | [facility] | 27.8 | (missing) | (missing) | | (unavailable | [facility]::07 [facility] | | | | + + + +--------+ + + + + | Result panel 67 | + + + + + +--------+ + + | | 2023-04-21 | [facility] | 32.6 | (missing) | (missing) | | (unavailable | [facility]07 [facility] | | | | + + + +--------+ + + + + | Result panel 68 | + + + + + +--------+ + + | | 2023-04-21 | [facility] | 12.3 | (missing) | (missing) | | (unavailable | [facility]07 [facility] | | | | + + + +--------+ + + + + | Result panel 69 | + + + + + +-------+ + + | | 2023-04-21 | [facility] | 220 | (missing) | (missing) | | (unavailable | [facility]07 [facility] | | | + + + +-------+ + + + + | Result panel 70 | + + + + + +--------+ + + | | 2023-04-21 | [facility] | 70.7 | (missing) | (missing) | | (unavailable | [facility] | | | + + + +--------+ + + + + | Result panel 71 | + + + + + +--------+ + + | | 2023-04-21 | [facility] | 21.4 | (missing) | (missing) | | (unavailable | [facility] | | | + + + +--------+ + + + + | Result panel 72 | + + + + + +-------+ + + | | 2023-04-21 | [facility] | 7.3 | (missing) | (missing) | | (unavailable | [facility] | | | + + + +-------+ + + + + | Result panel 73 | + + + + + +-------+ + + | | 2023-04-21 | [facility] | 0.2 | (missing) | (missing) | | (unavailable | [facility] | | | + + + +-------+ + + + + | Result panel 74 | + + + + + +-------+ + + | | 2023-04-21 | [facility] | 0.4 | (missing) | (missing) | | (unavailable | [facility] | | | | + + + +-------+ + + + + | Result panel 75 | + + + + + + + + + | | 2023-04-21 | [facility] | NEGATIVE | (missing) | (missing) | | (unavailable | [facility]32:07 [facility] | | | | + + + + + + + + + | Result panel 76 | + + + + + +-------+ + + | | 2023-05-13 | [facility] | 6.0 | (missing) | (missing) | | (unavailable | [facility]:07 [facility] | | | | + + + +-------+ + + + + | Result panel 77 | + + + + + +--------+ + + | | 2023-05-13 | [facility] | 51.5 | (missing) | (missing) | | (unavailable | 13:15:07 | [facility] | | | | + + + +--------+ + + + + | Result panel 78 | + + + + + +--------+ + + | | 2023-05-13 | [facility] | 39.3 | (missing) | (missing) | | (unavailable | 13:15:07 [facility] | | | | + + + +--------+ + + + + | Result panel 79 | + + + + + +-------+ + + | | 2023-05-13 | [facility] | 8.6 | (missing) | (missing) | | (unavailable | 13:15:07 | [facility] | | | | + + + +-------+ + + + + | Result panel 80 | + + + + + +-------+ + + | | 2023-05-13 | [facility] | 0.4 | (missing) | (missing) | | (unavailable | 13:15:07 | [facility] | | | | + + + +-------+ + + + + | Result panel 81 | + + + + + +-------+ + + | | 2023-05-13 | [facility] | 0.2 | (missing) | (missing) | | (unavailable | 13:15:07 [facility] | | | | + + + +-------+ + + + + | Result panel 82 | + + + + + +--------+ + + | | 2023-05-13 | [facility] | 4.18 | (missing) | (missing) | | (unavailable | 13:15:07 [facility] | | | | + + + +--------+ + + + + | Result panel 83 | + + + + + +--------+ + + | | 2023-05-13 | [facility] | 11.8 | (missing) | (missing) | | (unavailable | 13:15:07 | [facility] | | | | + + + +--------+ + + + + | Result panel 84 | + + + + + +------+---------+ + | | 2023-05-13 | [facility] | 86 | mg/dL | (missing) | | (unavailable | 13:15:07 | [facility] | | | | + + + +------+---------+ + + + | Result panel 85 | + + + + + +------+---------+ + | | 2023-05-13 | [facility] | 37 | mg/dL | (missing) | | (unavailable | 13:15:07 | [facility] | | | | + + + +------+---------+ + + + | Result panel 86 | + + + + + +--------+---------+ + | | 2023-05-13 | [facility] | 1.58 | mg/dL | (missing) | | (unavailable | 13:15:07 | [facility] | | | | + + + +--------+---------+ + + + | Result panel 87 | + + + + + +------+ + + | | 2023-05-13 | [facility] | 45 | (missing) | (missing) | | (unavailable | 13:15:07 | [facility] | | | | + + + +------+ + + + + | Result panel 88 | + + + + + +---------+ + + | | 2023-05-13 | [facility] | 23.41 | (missing) | (missing) | | (unavailable | 13:15:07 [facility] | | | | + + + +---------+ + + + + | Result panel 89 | + + + + + +--------+ + + | | 2023-05-13 | [facility] | 36.1 | (missing) | (missing) | | (unavailable | 13:15:07 | [facility] | | | | + + + +--------+ + + + + | Result panel 90 | + + + + + +-------+ + + | | 2023-05-13 | [facility] | 137 | (missing) | (missing) | | (unavailable | 13:15:07 | [facility] | | | | + + + +-------+ + + + + | Result panel 91 | + + + + + +-------+ + + | | 2023-05-13 | [facility] | 4.4 | (missing) | (missing) | | (unavailable | 13:15:07 | [facility] | | | | [facility] | | Hospital | | | | + + + +-------+ + + + + | Result panel 92 | + + + + + +-------+ + + | | 2023-05-13 | [facility] | 105 | (missing) | (missing) | | (unavailable | [facility]07 [facility] | | | | + + + +-------+ + + + + | Result panel 93 | + + + + + +------+ + + | | 2023-05-13 | [facility] | 23 | (missing) | (missing) | | (unavailable | [facility]07 [facility] | | | | + + + +------+ + + + + | Result panel 94 | + + + + + +--------+ + + | | 2023-05-13 | [facility] | 13.4 | (missing) | (missing) | | (unavailable | [facility] | | | + + + +--------+ + + + + | Result panel 95 | + + + + + +-------+---------+ + | | 2023-05-13 | [facility] | 8.6 | mg/dL | (missing) | | (unavailable | [facility]07 [facility] | | | + + + +-------+---------+ + + + | Result panel 96 | + + + + + +-------+ + + | | 2023-05-13 | [facility] | 7.1 | (missing) | (missing) | | (unavailable | [facility] | | | + + + +-------+ + + + + | Result panel 97 | + + + + + +-------+ + + | | 2023-05-13 | [facility] | 2.9 | (missing) | (missing) | | (unavailable | [facility] | | | + + + +-------+ + + + + | Result panel 98 | + + + + + +-------+ + + | | 2023-05-13 | [facility] | 4.2 | (missing) | (missing) | | (unavailable | [facility] | | | + + + +-------+ + + + + | Result panel 99 | + + + + + +--------+ + + | | 2023-05-13 | [facility] | 0.69 | (missing) | (missing) | | (unavailable | [facility] | | | + + + +--------+ + + + + | Result panel 100 | + + + + + +--------+ + + | | 2023-05-13 | [facility] | 86.4 | (missing) | (missing) | | (unavailable | [facility] | | | + + + +--------+ + + + + | Result panel 101 | + + + + + +-------+ + + | | 2023-05-13 | [facility] | 0.2 | (missing) | (missing) | | (unavailable | [facility] | | | + + + +-------+ + + + + | Result panel 102 | + + + + + +------+ + + | | 2023-05-13 | [facility] | 31 | (missing) | (missing) | | (unavailable | [facility]07 [facility] | | | + + + +------+ + + + + | Result panel 103 | + + + + + +------+ + + | | 2023-05-13 | [facility] | 29 | (missing) | (missing) | | (unavailable | [facility] | | | + + + +------+ + + + + | Result panel 104 | + + + + + +------+ + + | | 2023-05-13 | [facility] | 58 | (missing) | (missing) | | (unavailable | [facility] | | | + + + +------+ + + + + | Result panel 105 | + + + + + +---------+ + + | | 2023-05-13 | [facility] | 1.506 | (missing) | (missing) | | (unavailable | [facility] | | | + + + +---------+ + + + + | Result panel 106 | + + + + + + + + + | | 2023-05-13 | [facility] | NEGATIVE | (missing) | (missing) | | (unavailable | [facility] | | | + + + + + + + + + | Result panel 107 | + + + + + +-----+ + + | | 2023-05-13 | [facility] | 0 | (missing) | (missing) | | (unavailable | [facility] | | | + + + +-----+ + + + + | Result panel 108 | + + + + + +------+ + + | | 2023-05-13 | [facility] | // | (missing) | (missing) | | (unavailable | [facility] | | | + + + +------+ + + + + | Result panel 109 | + + + + + +-------+---------+ + | | 2023-05-13 | [facility] | 3.1 | mg/dL | (missing) | | (unavailable | [facility]07 [facility] | | | + + + +-------+---------+ + + + | Result panel 110 | + + + + + +------+ + + | | 2023-05-13 | [facility] | // | (missing) | (missing) | | (unavailable | [facility] | | | + + + +------+ + + + + | Result panel 111 | + + + + + +--------+ + + | | 2023-05-13 | [facility] | 28.2 | (missing) | (missing) | | (unavailable | [facility] | | + + + +--------+ + + + + | Result panel 112 | + + + + + +------+ + + | | 2023-05-13 | [facility] | <3 | (missing) | (missing) | | (unavailable | [facility] | | | + + + +------+ + + + + | Result panel 113 | + + + + + +--------+ + + | | 2023-05-13 | [facility] | 32.6 | (missing) | (missing) | | (unavailable | [facility] | | | + + + +--------+ + + + + | Result panel 114 | + + + + + +--------+ + + | | 2023-05-13 | [facility] | 12.5 | (missing) | (missing) | | (unavailable | [facility] | | | + + + +--------+ + + + + | Result panel 115 | + + + + + +-------+ + + | | 2023-05-13 | [facility] | 240 | (missing) | (missing) | | (unavailable | [facility] | | | + + + +-------+ + + + + | Result panel 116 | + + + + + + + + + | | 2023-05-13 | [facility] | YELLOW | (missing) | (missing) | | (unavailable | [facility] | | | + + + + + + + + + | Result panel 117 | + + + + + +---------+ + + | | 2023-05-13 | [facility] | CLEAR | (missing) | (missing) | | (unavailable | [facility]07 [facility] | | | + + + +---------+ + + + + | Result panel 118 | + + + + + + + + + | | 2023-05-13 | [facility] | NEGATIVE | (missing) | (missing) | | (unavailable | [facility] | | | + + + + + + + + + | Result panel 119 | + + + + + + + + + | | 2023-05-13 | [facility] | NEGATIVE | (missing) | (missing) | | (unavailable | [facility] | | | + + + + + + + + + | Result panel 120 | + + + + + + + + + | | 2023-05-13 | [facility] | NEGATIVE | (missing) | (missing) | | (unavailable | [facility] | | | + + + + + + + + + | Result panel 121 | + + + + + +---------+ + + | | 2023-05-13 | [facility] | 1.025 | (missing) | (missing) | | (unavailable | [facility]07 [facility] | | | + + + +---------+ + + + + | Result panel 122 | + + + + + + + + + | | 2023-05-13 | [facility] | TRACE-I | (missing) | (missing) | | (unavailable | [facility]07 [facility] | | | + + + + + + + + + | Result panel 123 | + + + + + +-------+ + + | | 2023-05-13 | [facility] | 5.5 | (missing) | (missing) | | (unavailable | [facility]07 [facility] | | | + + + +-------+ + + + + | Result panel 124 | + + + + + +-------+ + + | | 2023-05-13 | [facility] | 100 | (missing) | (missing) | | (unavailable | [facility]45[facility]07 [facility] | | | + + + +-------+ + + + + | Result panel 125 | + + + + + + + + + | | 2023-05-13 | [facility] | NORMAL | (missing) | (missing) | | (unavailable | [facility]07 [facility] | | | + + + + + + + + + | Result panel 126 | + + + + + + + + + | | 2023-05-13 | [facility] | NEGATIVE | (missing) | (missing) | | (unavailable | [facility]07 [facility] | | | + + + + + + + + + | Result panel 127 | + + + + + + + + + | | 2023-05-13 | [facility] | NEGATIVE | (missing) | (missing) | | (unavailable | [facility]07 [facility] | | | + + + + + + + + + | Result panel 128 | + + + + + +-------+ + + | | 2023-05-13 | [facility] | 0-1 | (missing) | (missing) | | (unavailable | [facility]07 [facility] | | | + + + +-------+ + + + + | Result panel 129 | + + + + + +-------+ + + | | 2023-05-13 | [facility] | 4-6 | (missing) | (missing) | | (unavailable | [facility] | | | + + + +-------+ + + + + | Result panel 130 | + + + + + + + + + | | 2023-05-13 | [facility] | SQUAMOUS 3+ | (missing) | (missing) | | (unavailable | [facility]07 [facility] | | | + + + + + + + + + | Result panel 131 | + + + + + + + + + | | 2023-05-13 | [facility] | NONE SEEN | (missing) | (missing) | | (unavailable | [facility]07 [facility] | | | + + + + + + + + + | Result panel 132 | + + + + + +------+ + + | | 2023-05-13 | [facility] | 1+ | (missing) | (missing) | | (unavailable | [facility]07 [facility] | | | + + + +------+ + + + + | Result panel 133 | + + + + + + + + + | | 2023-05-13 | [facility] | NONE SEEN | (missing) | (missing) | | (unavailable | [facility]45[facility]07 [facility] | | | + + + + + + + + + | Result panel 134 | + + + + + +------+ + + | | 2023-05-13 | [facility] | No | (missing) | (missing) | | (unavailable | [facility]07 [facility] | | | + + + +------+ + + + + | Result panel 135 | + + + + + + + + + | | 2023-05-13 | [facility] | CLEAN CATCH | (missing) | (missing) | | (unavailable | [facility]07 [facility] | | | + + + + + + + + + | Result panel 136 | + + + + + + + + + | | 2023-05-13 | [facility] | NEGATIVE | (missing) | (missing) | | (unavailable | [facility]07 [facility] | | | + + + + + + + + + | Result panel 137 | + + + + + + + + + | | 2023-05-13 | [facility] | NEGATIVE | (missing) | (missing) | | (unavailable | [facility]07 [facility] | | | + + + + + + + + + | Result panel 138 | + + + + + + + + + | | 2023-05-13 | [facility] | NEGATIVE | (missing) | (missing) | | (unavailable | [facility]07 [facility] | | | + + + + + + + + + | Result panel 139 | + + + + + + + + + | | 2023-05-13 | [facility] | NEGATIVE | (missing) | (missing) | | (unavailable | [facility]07 [facility] | | | + + + + + + + + + | Result panel 140 | + + + + + + + + + | | 2023-05-13 | [facility] | NEGATIVE | (missing) | (missing) | | (unavailable | [facility]07 [facility] | | | + + + + + + + + + | Result panel 141 | + + + + + + + + + | | 2023-05-13 | [facility] | NEGATIVE | (missing) | (missing) | | (unavailable | [facility]07 [facility] | | | + + + + + + + + + | Result panel 142 | + + + + + + + + + | | 2023-05-13 | [facility] | NEGATIVE | (missing) | (missing) | | (unavailable | [facility] | | | + + + + + + + + + | Result panel 143 | + + + + + + + + + | | 2023-05-13 | [facility] | NEGATIVE | (missing) | (missing) | | (unavailable | [facility]07 [facility] | | | + + + + + + + + + | Result panel 144 | + + + + + + + + + | | 2023-05-13 | [facility] | NEGATIVE | (missing) | (missing) | | (unavailable | [facility] | | | + + + + + + + + + | Result panel 145 | + + + + + + + + + | | 2023-05-13 | [facility] | NEGATIVE | (missing) | (missing) | | (unavailable | [facility]07 [facility] | | | + + + + + + + + + | Result panel 146 | + + + + + + + + + | | 2023-05-13 | [facility] | NEGATIVE | (missing) | (missing) | | (unavailable | [facility]07 [facility] | | | + + + + + + + + + | Result panel 147 | + + + + + + + + + | | 2023-05-13 | [facility] | NEGATIVE | (missing) | (missing) | | (unavailable | [facility]07 [facility] | | | + + + + + + + + + | Result panel 148 | + + + + + + + + + | | 2023-05-13 | [facility] | POSITIVE | (missing) | (missing) | | (unavailable | [facility]07 [facility] | | | + + + + + + + + + | Result panel 149 | + + + + + + + + + | | 2023-05-13 | [facility] | NEGATIVE | (missing) | (missing) | | (unavailable | [facility]25:07 [facility] | | | + + + + + + + Social History No information. Vital Signs + + + +---------+ | date | measurement | value | units | + + + +---------+ | 2023-04-21 00:00 | BMI | 30.4 | kg/m2 | + + + +---------+ | 2023-04-21 00:00 | height_metric | 170.18 | cm | + + + +---------+ | 2023-04-21 00:00 | height_standard | 67 | in | + + + +---------+ | 2023-04-21 00:00 | weight_metric | 88 | kg | + + + +---------+ | 2023-04-21 00:00 | weight_standard | 194.01 | lb | + + + +---------+ | 2023-04-22 00:00 | BP_diastolic | 99 | mmHg | + + + +---------+ | 2023-04-22 00:00 | BP_systolic | 146 | mmHg | + + + +---------+ | 2023-04-22 00:00 | heart_rate | 80 | /min | + + + +---------+ | 2023-04-22 00:00 | o2_saturation | 98 | % | + + + +---------+ | 2023-04-22 00:00 | respiration_rate | 18 | /min | + + + +---------+ | 2023-04-22 00:00 | temperature_metric | 36.5 | C | | | | | | + + + +---------+ | 2023-04-22 00:00 | | 97.7 | F | | | temperature_standar | | | | | d | | | + + + +---------+ | 2023-05-13 00:00 | BMI | 30.4 | kg/m2 | + + + +---------+ | 2023-05-13 00:00 | height_metric | 170.18 | cm | + + + +---------+ | 2023-05-13 00:00 | height_standard | 67 | in | + + + +---------+ | 2023-05-13 00:00 | weight_metric | 88 | kg | + + + +---------+ | 2023-05-13 00:00 | weight_standard | 194 | lb | + + + +---------+ | 2023-05-13 00:00 | weight_standard | 194.01 | lb | + + + +---------+ | 2023-05-17 00:00 | BP_diastolic | 106 | mmHg | + + + +---------+ | 2023-05-17 00:00 | BP_systolic | 152 | mmHg | + + + +---------+ | 2023-05-17 00:00 | heart_rate | 93 | /min | + + + +---------+ | 2023-05-17 00:00 | o2_saturation | 99 | % | + + + +---------+ | 2023-05-17 00:00 | respiration_rate | 16 | /min | + + + +---------+ | 2023-05-17 00:00 | temperature_metric | 36.28 | C | | | | | | + + + +---------+ | 2023-05-17 00:00 | | 97.3 | F | | | temperature_standar | | | | | d | | | + + + +---------+"
--- OUTSIDE RECORDS SUMMARY | ~2023-05-21 | XMS | Continuity of Care Document ---
Demographics + + + | Address | [address] | | | [place] [address] | + + + | Preferred Language | Unknown | + + + | Marital Status | Never | + + + | Anabaptism Affiliation | Unknown | + + + | Race | White | + + + | Ethnic Group | Not or | + + + Author + + + | Author | [facility] | + + + | Organization | [facility] | + + + | Address | [address] | | | [place] [address] | + + + | Phone | | + + + Care Team Providers + + + + | Care Director Of Category Management Name | Role | Phone | + [...] | 2023-04-22 00:00 | Buprenorphine HCl/Naloxone | [facility] | | | HCl | | + + + + | 2023-05-17 00:00 | Buprenorphine HCl/Naloxone | [facility] | | | HCl | | + + + + | 2023-04-22 00:00 | LORAZEPAM | [facility] | + + + + | 2023-05-17 00:00 | LORAZEPAM | [facility] | + + + + | 2023-04-22 00:00 | Buprenorphine HCl/Naloxone | [facility] | | | HCl | | + + + + | 2023-05-17 00:00 | Buprenorphine HCl/Naloxone | [facility] | | | HCl | | + + + + | 2023-04-22 00:00 | BUPRENORPHINE HCL/NALOXONE | [facility] | | | HCL | | + + + + | 2023-05-17 00:00 | BUPRENORPHINE HCL/NALOXONE | [facility] | | | HCL | | + + + + | 2023-04-22 00:00 | LISINOPRIL | [facility] | + + + + | 2023-05-17 00:00 | LISINOPRIL | [facility] | + + + + | 2023-04-22 00:00 | LORAZEPAM | [facility] | + + + + | 2023-05-17 00:00 | LORAZEPAM | [facility] | + + + + | 2023-04-22 00:00 | METHIMAZOLE | [facility] | + + + + | 2023-05-17 00:00 | METHIMAZOLE | [facility] | + + + + | 2023-04-22 00:00 | AMLODIPINE BESYLATE | [facility] | + + + + | 2023-05-17 00:00 | AMLODIPINE BESYLATE | [facility] | + + + + | 2023-04-22 00:00 | ALPRAZOLAM | [facility] | + + + + | 2023-05-17 00:00 | ALPRAZOLAM | [facility] | + + + + | 2023-04-22 00:00 | AMLODIPINE BESYLATE | [facility] | + + + + | 2023-05-17 00:00 | AMLODIPINE BESYLATE | [facility] | + + + + | 2023-05-17 00:00 | BUPRENORPHINE HCL | [facility] | + + + + | 2023-04-22 00:00 | Quetiapine Fumarate | [facility] | + + + + | 2023-05-17 00:00 | Quetiapine Fumarate | [facility] | + + + + | 2023-04-22 00:00 | AMPHET ASP/AMPHET/D-AMPHET | [facility] | | | | | + + + + | 2023-05-17 00:00 | AMPHET ASP/AMPHET/D-AMPHET | [facility] | | | | | + + + + | 2023-04-22 00:00 | METOPROLOL SUCCINATE | [facility] | + + + + | 2023-05-17 00:00 | METOPROLOL SUCCINATE | [facility] | + + + + | 2023-04-22 00:00 | METOPROLOL SUCCINATE | [facility] | + + + + | 2023-05-17 00:00 | METOPROLOL SUCCINATE | [facility] | + + + + | 2023-04-22 00:00 | LABETALOL HCL | [facility] | + + + + | 2023-05-17 00:00 | LABETALOL HCL | [facility] | + + + + Problems + + + + | date | description | facility | + + + + | 2018-08-10 00:00 | Polysubstance abuse | [facility] | + + + + | 2018-08-10 00:00 | Polysubstance abuse | [facility] | + + + + | 2018-08-10 00:00 | Palpitations | [facility] | + + + + | 2018-08-10 00:00 | Palpitations | [facility] | + + + + | 2021-03-04 00:00 | Hypertension | [facility] | + + + + | 2021-03-04 00:00 | Hypertension | [facility] | + + + + | 2021-03-04 00:00 | History of schizophrenia | [facility] | + + + + | 2021-03-04 00:00 | History of schizophrenia | [facility] | + + + + | 2021-03-16 00:00 | Psychosis | [facility] | + + + + | 2021-03-16 00:00 | Psychosis | [facility] | + + + + | 2021-03-16 00:00 | Manic state | [facility] | + + + + | 2021-03-16 00:00 | Manic state | [facility] | + + + + | 2023-04-21 00:00 | Schizoaffective disorder | [facility] | + + + + | 2023-04-21 00:00 | Schizoaffective disorder | [facility] | + + + + | 2023-04-21 00:00 | Bipolar I disorder | [facility] | + + + + | 2023-04-21 00:00 | Bipolar I disorder | [facility] | + + + + | 2023-04-21 [...] + + | 2023-04-21 12:48 | OTHER DIRECTOR TALENT ACQUISITION (CURRENT) | [facility] | | | DRUG [...] + + | 2023-05-13 13:24 | OTHER PRISON (CURRENT) | [facility] | | | DRUG THERAPY | | + + + + | 2023-05-13 13:24 | ALLERGY STATUS TO OTH | [facility] | | | DRUG/MEDS/BIOL SUBST STATUS | | | | | | + + + + | 2023-05-15 00:00 | Bipolar disorder | [facility] | + + + + Procedures [...] (missing) | | (unavailable | 13:10:07 | [facility] | | | | | ) | [...] (missing) | | (unavailable | 15:45:07 | [facility] | | | | | ) | [...]
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
[2023-05-21] MEDS ORDERED: XANAX1 MG (10:55)
[2023-05-27 12:43] VITALS: BP 160/112
== END 2023-05-27 12:45 | disposition home or self-care (01) ==
LOC: ED 10:12
DX: Z04.6 Encounter for general psychiatric examination, requested by authority (principal); I10 Essential (primary) hypertension; F17.200 Nicotine dependence, unspecified, uncomplicated; Z88.8 Allergy status to other drugs, medicaments and biological substances; Z79.899 Other long term (current) drug therapy; Z20.822 Contact with and (suspected) exposure to COVID-19
CPT/HCPCS: 36415; 80048; 80053; 81001; 84443; 84703; 85025; 99284; A9270; G0480; U0002

== ENCOUNTER 2023-08-29 18:11 | Emergency (ER) | payer OTHER ==
[~2023-08-29] VITALS: Ht 170.2 cm; Wt 81.7 kg
[~2023-08-29 18:11] MED LIST changes: +AMLODIPINE BESY10 MG; +CLONIDINE HCL0.1 MG; +LISINOPRIL40 MG; +METOPROLOL SUCC25 MG; +XANAX1 MG
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
[2023-08-29] MEDS ORDERED: AMLODIPINE BESY10 MG PO (18:30)
[2023-08-29] MEDS ORDERED: METOPROLOL SUCC25 MG PO (18:30)
[2023-08-29 20:50] VITALS: BP 146/107
== END 2023-08-29 20:50 | disposition home or self-care (01) ==
LOC: ED 18:11
DX: I10 Essential (primary) hypertension (principal); F17.200 Nicotine dependence, unspecified, uncomplicated; Z88.8 Allergy status to other drugs, medicaments and biological substances; Z79.899 Other long term (current) drug therapy
CPT/HCPCS: A9270-GY

== ENCOUNTER 2023-09-12 15:44 | Emergency (ER) | payer OTHER ==
[~2023-09-12] VITALS: Ht 170.2 cm; Wt 81.7 kg
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
[2023-09-12 16:38] LABS: BASOPHILS 0.4 % (0-2); EOSINOPHILS 0.7 % (0-6); HEMATOCRIT 40.3 % (35.0-50.0); HEMOGLOBIN 13.3 g/dL (12.0-18.0); LYMPHOCYTES 41.4 % (24-44); MCH 27.8 (27-36); MCV 84.2 fl (81-99); MONOCYTES 8.2 % (0-12); NEUTROPHILS 49.3 % (39-80); PLATELET COUNT 188 K/uL (140-440); RBC 4.78 M/ul (4.3-5.7); RDW 12.8 (10.5-15.0)
[2023-09-12 17:07] LABS: ACETAMINOPHEN 2 ug/mL (10-30); ALBUMIN 2.2 g/dL (3.4-5.0); ALBUMIN/GLOBULIN RATIO 0.59 (1.1-2.4); ALCOHOL, MEDICAL <3 ng/dL (<3); ALKALINE PHOSPHATASE 61 U/L (46-116); ALT (SGPT) 10 U/L (14-59); ANION GAP 10.5 (7-21); AST (SGOT) 14 U/L (15-37); BILIRUBIN, TOTAL 0.3 ng/dL (0.2-1.0); BUN/CREATININE RATIO 16.34 (6.0-28.6); CALCIUM 8.2 mg/dL (8.5-10.1); CARBON DIOXIDE 25 mmol/L (21-32); CHLORIDE 109 mmol/L (98-107); CREATININE, SERUM 1.04 mg/dL (0.55-1.02); GLOMERULAR FILTRATION RATE,EST 74 mL/min (>60); POTASSIUM 3.5 mmol/L (3.5-5.1); PROTEIN, TOTAL 5.9 g/dL (6.4-8.2); SALICYLATE 0.9 mg/dL (2.8-20.0); TSH, 3RD GENERATION 1.469 uIU/mL (0.358-3.740); UREA NITROGEN 17 mg/dL (7-18)
[2023-09-12 17:10] LABS: VALPROIC ACID <3 ug/mL (50-100)
[2023-09-12 21:37] LABS: INFLUENZA B NAA NEGATIVE (NEGATIVE); RESPIRATORY SYNCYTIAL VIR NAA NEGATIVE (NEGATIVE)
[2023-09-12 22:23] LABS: BILIRUBIN, URINE NEGATIVE (negative); BLOOD/HGB, URINE MODERATE (Negative); KETONE, URINE NEGATIVE (Negative); LEUK ESTERASE, URINE NEGATIVE (negative); NITRITE, URINE NEGATIVE (negative)
[2023-09-12 22:24] LABS: BACTERIA, URINE RARE /hpf (negative); CRYSTALS, URINE NONE SEEN (0-1+); EPITHELIAL CELLS, URINE SQUAMOUS 1+ /lpf (0-1+)
[2023-09-12 22:25] LABS: CASTS, URINE NONE SEEN \\lpf; REFLEX CULTURE, URINE No (No)
[2023-09-12 22:31] LABS: AMPHETAMINES, URINE NEGATIVE (NEGATIVE); BARBITURATES, URINE NEGATIVE (NEGATIVE); BENZODIAZEPINE, URINE NEGATIVE (NEGATIVE); BUPRENORPHINE, URINE POSITIVE (NEGATIVE); CANNABINOID, URINE NEGATIVE (NEGATIVE); COCAINE, URINE NEGATIVE (NEGATIVE); ECSTASY, URINE NEGATIVE (NEGATIVE); FENTANYL, URINE NEGATIVE (NEGATIVE); METHADONE, URINE NEGATIVE (NEGATIVE); OPIATES, URINE NEGATIVE (NEGATIVE); OXYCODONE, URINE NEGATIVE (NEGATIVE); PHENCYCLIDINE, URINE NEGATIVE (NEGATIVE)
[2023-09-19 06:59] LABS: ANION GAP 15.1 (7-21); BUN/CREATININE RATIO 35.57 (6.0-28.6); CALCIUM 8.1 mg/dL (8.5-10.1); CARBON DIOXIDE 22 mmol/L (21-32); CHLORIDE 108 mmol/L (98-107); CREATININE, SERUM 1.04 mg/dL (0.55-1.02); GLOMERULAR FILTRATION RATE,EST 74 mL/min (>60); POTASSIUM 4.1 mmol/L (3.5-5.1); UREA NITROGEN 37 mg/dL (7-18); VALPROIC ACID 62 ug/mL (50-100)
[2023-09-21 20:19] VITALS: BP 136/67
== END 2023-09-21 19:44 ==
LOC: ED 15:44
PROVIDERS: Emergency Medicine; Internal Medicine
DX: I10 Essential (primary) hypertension (principal); F17.200 Nicotine dependence, unspecified, uncomplicated; Z79.899 Other long term (current) drug therapy; Z88.8 Allergy status to other drugs, medicaments and biological substances; Z11.52 Encounter for screening for COVID-19; Z02.89 Encounter for other administrative examinations
CPT/HCPCS: 36415; 80048; 80053; 80164; 80307; 81001; 84443; 84703; 85025; 87502; 99284; A9270; C9803; G0480; U0002

== ENCOUNTER 2023-10-14 19:21 | Emergency (ER) | payer OTHER ==
[~2023-10-14] VITALS: Ht 170.2 cm; Wt 180.0 kg
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
[2023-10-14] MEDS ORDERED: METOPROLOL SUCC25 MG (19:29)
[2023-10-14] MEDS ORDERED: LISINOPRIL2.5 MG (19:29)
[2023-10-14] MEDS ORDERED: AMLODIPINE BESYL5 MG (19:29)
[2023-10-14 21:33] VITALS: BP 149/117
== END 2023-10-14 21:31 | disposition home or self-care (01) ==
LOC: ED 19:21
DX: M79.7 Fibromyalgia (principal); I10 Essential (primary) hypertension; M32.9 Systemic lupus erythematosus, unspecified; F17.200 Nicotine dependence, unspecified, uncomplicated; Z88.8 Allergy status to other drugs, medicaments and biological substances; Z79.899 Other long term (current) drug therapy
CPT/HCPCS: 99283; A9270

== ENCOUNTER 2023-12-24 14:29 | Emergency (ER) | payer OTHER ==
[~2023-12-24] VITALS: Ht 170.2 cm; Wt 84.3 kg
[~2023-12-24 14:29] MED LIST changes: +AMLODIPINE BESYL5 MG; +LISINOPRIL2.5 MG
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
[2023-12-24] MEDS ORDERED: ARIPIPRAZOLE30 MG PO (16:48)
[2023-12-24] MEDS ORDERED: CLONIDINE HCL0.1 MG PO (16:48)
[2023-12-24] MEDS ORDERED: LISINOPRIL40 MG PO (16:49)
[2023-12-24] MEDS ORDERED: BRIXADI8 MG/0.16 PO (16:52)
[2023-12-24] MEDS ORDERED: BUPRENORPHINE HC2 MG SL (17:39)
[2023-12-24 17:55] VITALS: BP 152/111
== END 2023-12-24 18:00 | disposition home or self-care (01) ==
LOC: ED 14:29
DX: M79.7 Fibromyalgia (principal); G89.29 Other chronic pain; M32.9 Systemic lupus erythematosus, unspecified; M19.90 Unspecified osteoarthritis, unspecified site; E05.90 Thyrotoxicosis, unspecified without thyrotoxic crisis or storm; I10 Essential (primary) hypertension; F17.200 Nicotine dependence, unspecified, uncomplicated; Z88.8 Allergy status to other drugs, medicaments and biological substances; Z79.899 Other long term (current) drug therapy
CPT/HCPCS: 99281

== ENCOUNTER 2024-06-02 20:16 | Emergency (ER) | payer OTHER ==
[~2024-06-02] VITALS: Ht 170.2 cm; Wt 86.8 kg
[~2024-06-02 20:16] MED LIST changes: +ARIPIPRAZOLE30 MG PO; +BRIXADI8 MG/0.16 PO; +CLONIDINE HCL0.1 MG PO
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
[2024-06-02] MEDS ORDERED: COREG25 MG PO (20:29)
[2024-06-02] MEDS ORDERED: ASPIRIN 81 MG CHEW PO ONE ×2 (20:30→23:30)
[2024-06-02 20:39] LABS: EOSINOPHILS 0.4 % (0-6); MONOCYTES 6.2 % (0-12)
[2024-06-02 20:43] LABS: BASOPHILS 0.3 % (0-2); HEMATOCRIT 31.4 % (35.0-50.0); HEMOGLOBIN 10.6 g/dL (12.0-18.0); LYMPHOCYTES 35.7 % (24-44); MCHC 33.7 g/dl (30-36); MCV 82.9 fl (81-99); NEUTROPHILS 57.4 % (39-80); PLATELET COUNT 320 K/uL (140-440); RBC 3.79 M/ul (4.3-5.7); RDW 11.8 (10.5-15.0)
[2024-06-02 20:50] LABS: INR 1.05 (0.80-1.30)
[2024-06-02] MEDS ORDERED: LACTATED RINGER'S 1,000 ML IV ONE ×2 (21:00→21:15)
[2024-06-02] MEDS ORDERED: dilTIAZem HCL 25 MG/5 ML VIAL IV ONE (21:00)
[2024-06-02 21:06] LABS: ALBUMIN/GLOBULIN RATIO 0.98 (1.1-2.4); ANION GAP 17.9 (7-21); BILIRUBIN, TOTAL 0.2 ng/dL (0.2-1.0); BUN/CREATININE RATIO 32.69 (6.0-28.6); CALCIUM 9.6 mg/dL (8.5-10.1); CREATININE, SERUM 3.67 mg/dL (0.55-1.02); MAGNESIUM 1.6 mg/dL (1.8-2.4); POTASSIUM 4.9 mmol/L (3.5-5.1); PROTEIN, TOTAL 8.1 g/dL (6.4-8.2)
[2024-06-02] MEDS ORDERED: MAGNESIUM SULFATE 2 GM/50 ML BAG IV ONE (21:30)
[2024-06-02] MEDS ORDERED: ondansetron HCL 4 MG/2 ML VIAL IV ONE (22:15)
[2024-06-02 23:04] LABS: ANION GAP 12.9 (7-21); BUN/CREATININE RATIO 37.33 (6.0-28.6); CALCIUM 9.5 mg/dL (8.5-10.1); POTASSIUM 4.9 mmol/L (3.5-5.1)
[2024-06-02] MEDS ORDERED: HEParin SOD (PORCINE) 5,000 UNIT/ML VIAL IV ONE (23:30)
[2024-06-02] MEDS ORDERED: HEPARIN SOD,PORK IN 0.45% NACL 500 ML IV SCH (23:30)
[2024-06-03] MEDS ORDERED: SODIUM CHLORIDE 0.9% 1,000 ML IV SCH (01:00)
[2024-06-03 01:50] VITALS: BP 134/92
--- NOTE | 2024-06-03 09:41 | EKG ---
[facility] [address] [place], [place] [address] Signed Sinus tachycardia Cannot rule out Anterior infarct , age undetermined Abnormal ECG No previous ECGs available Confirmed by ERIN HANNA MD ([id number]) on 06/03/2024 9:40:58 AM Electronically Signed By: ERIN HANNA 06/03/24 0941 PATIENT NAME: CAPRICE HAWKINS Electrocardiogram DATE OF : 89 PHYSICIAN: ERIN HANNA REPORT #: [id number] REPORT IS CONFIDENTIAL AND NOT TO BE RELEASED WITHOUT AUTHORIZATION
--- NOTE | 2024-06-03 09:41 | EKG ---
[facility] [address] [place] [address] Signed Normal sinus rhythm Normal ECG When compared with ECG of 02-JUN-2024 20:21, (Unconfirmed) Vent. rate has decreased BY [address] elevation has replaced ST depression in Lateral leads Nonspecific T wave abnormality has replaced inverted T waves in Inferior leads T wave amplitude has increased in Lateral leads Confirmed by ERIN HANNA MD ([id number]) on 06/03/2024 9:40:49 AM Electronically Signed By: ERIN HANNA 06/03/24 0941 PATIENT NAME: CAPRICE HAWKINS Electrocardiogram DATE OF : 89 PHYSICIAN: ERIN HANNA REPORT #: [id number] REPORT IS CONFIDENTIAL AND NOT TO BE RELEASED WITHOUT AUTHORIZATION
== END 2024-06-03 01:35 | disposition short-term general hospital (02) ==
LOC: ED 20:16
PROVIDERS: Family Medicine
DX: I21.A1 Myocardial infarction type 2 (principal); I12.9 Hypertensive chronic kidney disease with stage 1 through stage 4 chronic kidney disease, or unspecified chronic kidney disease; N18.9 Chronic kidney disease, unspecified; N17.9 Acute kidney failure, unspecified; E83.42 Hypomagnesemia; M32.9 Systemic lupus erythematosus, unspecified; F17.200 Nicotine dependence, unspecified, uncomplicated; Z88.8 Allergy status to other drugs, medicaments and biological substances; Z79.899 Other long term (current) drug therapy
CPT/HCPCS: 36415; 71045; 80048; 80053; 83605; 83735; 84443; 84484; 84703; 85025; 85610; 85730; 87040; 93005; 93010; 96365; 96375; 99285-25; A9270; J1644; J2405; J3475; J7030; J7121

== ENCOUNTER 2024-06-26 01:30 | Emergency (ER) | payer OTHER ==
[~2024-06-26] VITALS: Ht 170.2 cm; Wt 87.0 kg
[~2024-06-26 01:30] MED LIST changes: +COREG25 MG PO
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
[2024-06-26] MEDS ORDERED: LORazepam 1 MG TAB PO ONE (01:45)
[2024-06-26 02:26] LABS: BILIRUBIN, URINE NEGATIVE (negative); BLOOD/HGB, URINE SMALL (Negative); KETONE, URINE NEGATIVE (Negative); LEUK ESTERASE, URINE NEGATIVE (negative); NITRITE, URINE NEGATIVE (negative)
[2024-06-26 02:30] LABS: PREGNANCY TEST, URINE NEGATIVE (NEG)
[2024-06-26 02:32] LABS: EPITHELIAL CELLS, URINE SQUAMOUS 2+ /lpf (0-1+)
[2024-06-26 02:33] LABS: BACTERIA, URINE 1+ /hpf (negative); CASTS, URINE NONE SEEN \\lpf; COLLECTION TYPE, URINE CLEAN CATCH; CRYSTALS, URINE NONE SEEN (0-1+); REFLEX CULTURE, URINE No (No)
[2024-06-26 02:40] LABS: AMPHETAMINES, URINE POSITIVE (NEGATIVE); BARBITURATES, URINE NEGATIVE (NEGATIVE); BENZODIAZEPINE, URINE POSITIVE (NEGATIVE); BUPRENORPHINE, URINE NEGATIVE (NEGATIVE); CANNABINOID, URINE NEGATIVE (NEGATIVE); COCAINE, URINE NEGATIVE (NEGATIVE); ECSTASY, URINE NEGATIVE (NEGATIVE); FENTANYL, URINE POSITIVE (NEGATIVE); METHADONE, URINE NEGATIVE (NEGATIVE); OPIATES, URINE NEGATIVE (NEGATIVE); OXYCODONE, URINE NEGATIVE (NEGATIVE); PHENCYCLIDINE, URINE NEGATIVE (NEGATIVE)
[2024-06-26] MEDS ORDERED: AMLODIPINE BESYLATE 10 MG TAB PO ONE (03:15)
[2024-06-26 03:41] VITALS: BP 160/113
--- NOTE | 2024-06-26 22:07 | EKG ---
[facility] [address] [facility] [place] [address] Signed Sinus tachycardia Possible Inferior infarct , age undetermined Cannot rule out Anterior infarct , age undetermined Abnormal ECG When compared with ECG of 02-JUN-2024 23:19, Minimal criteria for Anterior infarct are now present Borderline criteria for Inferior infarct are now present Inverted T waves have replaced nonspecific T wave abnormality in Inferior leads Nonspecific T wave abnormality now evident in Lateral leads Confirmed by Terri Russ MD () on 06/26/2024 10:06:56 PM Electronically Signed By: TERRI RUSS MD 06/26/24 2207 PATIENT NAME: CAPRICE HAWKINS Electrocardiogram DATE OF : 89 PHYSICIAN: TERRI RUSS MD REPORT #: [id number] REPORT IS CONFIDENTIAL AND NOT TO BE RELEASED WITHOUT AUTHORIZATION
== END 2024-06-26 03:40 | disposition home or self-care (01) ==
LOC: ED 01:30
PROVIDERS: Internal Medicine
DX: F41.0 Panic disorder [episodic paroxysmal anxiety] (principal); I10 Essential (primary) hypertension; F17.200 Nicotine dependence, unspecified, uncomplicated; Z88.8 Allergy status to other drugs, medicaments and biological substances; Z79.899 Other long term (current) drug therapy
CPT/HCPCS: 80307; 81001; 84703; 93005; 93010; 99285; A9270-GY

== ENCOUNTER 2024-08-11 01:54 | Emergency (ER) | payer OTHER ==
[~2024-08-11] VITALS: Ht 170.2 cm; Wt 77.0 kg
[2024-08-11] MEDS ORDERED: ACETAMINOPHEN 500 MG TAB PO ONE (02:15)
[2024-08-11] MEDS ORDERED: KETOROLAC TROMETHAMINE 15 MG/ML VIAL IV ONE (02:15)
[2024-08-11 02:26] LABS: BASOPHILS 1.1 % (0-2); EOSINOPHILS 0.8 % (0-6); HEMATOCRIT 31.7 % (35.0-50.0); HEMOGLOBIN 10.3 g/dL (12.0-18.0); LYMPHOCYTES 19.3 % (24-44); MCH 28.4 (27-36); MCHC 32.4 g/dl (30-36); MCV 87.6 fl (81-99); MONOCYTES 5.6 % (0-12); NEUTROPHILS 73.2 % (39-80); PLATELET COUNT 269 K/uL (140-440); RBC 3.62 M/ul (4.3-5.7); RDW 14.4 (10.5-15.0)
[2024-08-11 02:28] LABS: BILIRUBIN, URINE NEGATIVE (negative); BLOOD/HGB, URINE SMALL (Negative); KETONE, URINE NEGATIVE (Negative); LEUK ESTERASE, URINE NEGATIVE (negative); NITRITE, URINE NEGATIVE (negative)
[2024-08-11] MEDS ORDERED: GABAPENTIN 300 MG CAP PO ONE (02:30)
[2024-08-11] MEDS ORDERED: ZESTRIL40 MG (02:40)
[2024-08-11] MEDS ORDERED: CARVEDILOL25 MG (02:40)
[2024-08-11 02:42] LABS: AMPHETAMINES, URINE NEGATIVE (NEGATIVE); BARBITURATES, URINE NEGATIVE (NEGATIVE); BENZODIAZEPINE, URINE NEGATIVE (NEGATIVE); BUPRENORPHINE, URINE POSITIVE (NEGATIVE); CANNABINOID, URINE NEGATIVE (NEGATIVE); COCAINE, URINE NEGATIVE (NEGATIVE); ECSTASY, URINE POSITIVE (NEGATIVE); FENTANYL, URINE POSITIVE (NEGATIVE); METHADONE, URINE NEGATIVE (NEGATIVE); OPIATES, URINE NEGATIVE (NEGATIVE); OXYCODONE, URINE NEGATIVE (NEGATIVE); PHENCYCLIDINE, URINE NEGATIVE (NEGATIVE)
[2024-08-11 02:45] LABS: BACTERIA, URINE 1+ /hpf (negative); CASTS, URINE NONE SEEN \\lpf; CRYSTALS, URINE NONE SEEN (0-1+); EPITHELIAL CELLS, URINE SQUAMOUS 4+ /lpf (0-1+); WHITE BLOOD CELLS, URINE 41-50 /HPF (0-5)
[2024-08-11 02:46] LABS: ALBUMIN 3.2 g/dL (3.4-5.0); ALBUMIN/GLOBULIN RATIO 0.89 (1.1-2.4); ANION GAP 14.6 (7-21); BILIRUBIN, TOTAL 0.3 ng/dL (0.2-1.0); BUN/CREATININE RATIO 20.93 (6.0-28.6); CALCIUM 8.9 mg/dL (8.5-10.1); COLLECTION TYPE, URINE CLEAN CATCH; CREATININE, SERUM 1.29 mg/dL (0.55-1.02); POTASSIUM 4.6 mmol/L (3.5-5.1); PROTEIN, TOTAL 6.8 g/dL (6.4-8.2); REFLEX CULTURE, URINE No (No)
[2024-08-11] MEDS ORDERED: NITROGLYCERIN 0.4 MG SUBL SL PRN (03:00)
[2024-08-11] MEDS ORDERED: AMLODIPINE BESYLATE 10 MG TAB PO ONE (03:15)
[2024-08-11] MEDS ORDERED: buprenorphine HCL 8 MG TAB.SUBL SL ONE (03:15)
[2024-08-11] MEDS ORDERED: carvediloL 25 MG TAB PO ONE (03:15)
[2024-08-11] MEDS ORDERED: NEURONTIN300 MG PO (04:55)
[2024-08-11 05:03] VITALS: BP 149/113
--- NOTE | 2024-08-11 21:24 | EKG ---
[facility] [address] [facility] [place] [address] Signed Normal sinus rhythm Cannot rule out Anterior infarct (cited on or before 26-JUN-2024) T wave abnormality, consider inferior ischemia Abnormal ECG When compared with ECG of 26-JUN-2024 01:35, No significant change was found Confirmed by Terri Russ MD () on 08/11/2024 9:24:07 PM Electronically Signed By: TERRI RUSS MD 08/11/242123 PATIENT NAME: CAPRICE HAWKINS Electrocardiogram DATE OF : [birth year] PHYSICIAN: TERRI RUSS MD REPORT #: [id number] REPORT IS CONFIDENTIAL AND NOT TO BE RELEASED WITHOUT AUTHORIZATION
== END 2024-08-11 05:06 | disposition home or self-care (01) ==
LOC: ED 01:54
PROVIDERS: Internal Medicine
DX: M79.7 Fibromyalgia (principal); I12.9 Hypertensive chronic kidney disease with stage 1 through stage 4 chronic kidney disease, or unspecified chronic kidney disease; N18.9 Chronic kidney disease, unspecified; E05.90 Thyrotoxicosis, unspecified without thyrotoxic crisis or storm; F17.200 Nicotine dependence, unspecified, uncomplicated; Z88.8 Allergy status to other drugs, medicaments and biological substances; Z79.899 Other long term (current) drug therapy
CPT/HCPCS: 36415; 80053; 80307; 81001; 82553; 84484; 84703; 85025; 86140; 93005; 93010; 96374; 99283-25; A9270; J1885

== ENCOUNTER 2024-08-27 20:50 | Emergency (ER) | payer OTHER ==
[~2024-08-27] VITALS: Ht 170.2 cm; Wt 89.0 kg
[~2024-08-27 20:50] MED LIST changes: +CARVEDILOL25 MG; +NEURONTIN300 MG PO; +ZESTRIL40 MG
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
[2024-08-27] MEDS ORDERED: NOREPINEPHRINE BITARTRATE 250 ML IV SCH (21:00)
[2024-08-27] MEDS ORDERED: MIDAZOLAM HCL 2 MG/2 ML VIAL IV ONE (21:15)
[2024-08-27] MEDS ORDERED: MIDAZOLAM HCL 100 MG in DEXTROSE 5% 80 ML IV SCH (21:15)
[2024-08-27] MEDS ORDERED: ROCURONIUM BROMIDE 50 MG/5 ML SYR IV ONE (21:15)
[2024-08-27 21:17] LABS: BILIRUBIN, URINE NEGATIVE (negative); BLOOD/HGB, URINE NEGATIVE (Negative); KETONE, URINE NEGATIVE (Negative); LEUK ESTERASE, URINE NEGATIVE (negative); NITRITE, URINE NEGATIVE (negative)
[2024-08-27 21:18] LABS: HEMATOCRIT 33.6 % (35.0-50.0); HEMOGLOBIN 10.3 g/dL (12.0-18.0); MCH 28.7 (27-36)
[2024-08-27 21:20] LABS: MCHC 30.8 g/dl (30-36); MCV 93.2 fl (81-99); PLATELET COUNT 239 K/uL (140-440); RBC 3.61 M/ul (4.3-5.7)
[2024-08-27 21:23] LABS: EPITHELIAL CELLS, URINE SQUAMOUS 3+ /lpf (0-1+)
[2024-08-27 21:24] LABS: BACTERIA, URINE RARE /hpf (negative); CRYSTALS, URINE NONE SEEN (0-1+)
[2024-08-27 21:25] LABS: CASTS, URINE HYALINE 3+ \\lpf; COLLECTION TYPE, URINE CLEAN CATCH; REFLEX CULTURE, URINE No (No)
[2024-08-27 21:26] LABS: BASE EXCESS, BLOOD GAS -14.8 mmol/L (-2-2); HCO3, BLOOD GAS 14.8 mmol/L (22-26); OXYGEN RECEIVED, BLOOD GAS 100%; PCO2, BLOOD GAS 50.6 mmHg (35-45); PH, BLOOD GAS 7.07 (7.35-7.45); PO2, BLOOD GAS 204 mmHg (80-100); TOTAL CO2, BLOOD GAS 16.3
[2024-08-27 21:32] LABS: BANDS, MANUAL DIFF 7; EOSINOPHILS, MANUAL DIFF 1; LYMPHOCYTES, MANUAL DIFF 65; MONOCYTES, MANUAL DIFF 1; NEUTROPHILS, MANUAL DIFF 26
[2024-08-27 21:33] LABS: AMPHETAMINES, URINE NEGATIVE (NEGATIVE); BARBITURATES, URINE NEGATIVE (NEGATIVE); BENZODIAZEPINE, URINE POSITIVE (NEGATIVE); BUPRENORPHINE, URINE NEGATIVE (NEGATIVE); CANNABINOID, URINE NEGATIVE (NEGATIVE); COCAINE, URINE NEGATIVE (NEGATIVE); ECSTASY, URINE NEGATIVE (NEGATIVE); FENTANYL, URINE POSITIVE (NEGATIVE); METHADONE, URINE NEGATIVE (NEGATIVE); OPIATES, URINE NEGATIVE (NEGATIVE); OXYCODONE, URINE NEGATIVE (NEGATIVE); PHENCYCLIDINE, URINE NEGATIVE (NEGATIVE)
[2024-08-27 21:39] LABS: MAGNESIUM 2.6 mg/dL (1.8-2.4)
[2024-08-27 21:40] LABS: ACETAMINOPHEN 0 ug/mL (10-30); ALBUMIN 2.7 g/dL (3.4-5.0); ALBUMIN/GLOBULIN RATIO 0.77 (1.1-2.4); ALCOHOL, MEDICAL <3 ng/dL (<3); ALKALINE PHOSPHATASE 172 U/L (46-116); ALT (SGPT) 277 U/L (14-59); ANION GAP 22.4 (7-21); AST (SGOT) 529 U/L (15-37); BILIRUBIN, TOTAL 0.2 ng/dL (0.2-1.0); BUN/CREATININE RATIO 10.17 (6.0-28.6); CALCIUM 8.8 mg/dL (8.5-10.1); CARBON DIOXIDE 19 mmol/L (21-32); CHLORIDE 106 mmol/L (98-107); CREATININE, SERUM 4.03 mg/dL (0.55-1.02); GLOMERULAR FILTRATION RATE,EST 14 mL/min (>60); PROTEIN, TOTAL 6.2 g/dL (6.4-8.2); SALICYLATE 2.2 mg/dL (2.8-20.0); TSH, 3RD GENERATION 3.779 uIU/mL (0.358-3.740); UREA NITROGEN 41 mg/dL (7-18)
[2024-08-27] MEDS ORDERED: HYDROXYCHLOROQ200 MG PO (21:40)
[2024-08-27] MEDS ORDERED: BENZTROPINE MESY1 MG PO (21:40)
[2024-08-27 21:41] LABS: POTASSIUM 7.4 mmol/L (3.5-5.1)
[2024-08-27] MEDS ORDERED: FUROSEMIDE80 MG PO (21:41)
[2024-08-27] MEDS ORDERED: BUPRENORPHINE HC2 MG SL (21:41)
[2024-08-27] MEDS ORDERED: ATORVASTATIN CA80 MG PO (21:41)
[2024-08-27] MEDS ORDERED: MYCOPHENOLATE500 MG PO (21:41)
[2024-08-27] MEDS ORDERED: SODIUM BICARBONATE 50 MEQ/50 ML SYR IV SCH (22:15)
[2024-08-27] MEDS ORDERED: DEXTROSE 50% 50 ML SYR IV ONE (22:30)
[2024-08-27] MEDS ORDERED: ALBUTEROL SULFATE 0.5% 2.5 MG/0.5 ML VIAL INH ONE (22:30)
[2024-08-27] MEDS ORDERED: SODIUM POLYSTYRENE SULFONATE 15 GM/60 ML UDC PT ONE (22:30)
[2024-08-27] MEDS ORDERED: Insulin Regular, Human 100 UNIT/ML ML IV ONE (22:30)
[2024-08-27] MEDS ORDERED: CALCIUM GLUCONATE 1,000 MG/10 ML VIAL IV ONE ×2 (22:30→23:45)
[2024-08-27 22:49] LABS: INFLUENZA B NAA NEGATIVE (NEGATIVE); RESPIRATORY SYNCYTIAL VIR NAA NEGATIVE (NEGATIVE)
[2024-08-27] MEDS ORDERED: AMIODARONE/DEXTROSE 200 ML IV ONE (23:15)
[2024-08-27 23:55] LABS: BASE EXCESS, BLOOD GAS -13.5 mmol/L (-2-2); O2 SATURATION, BLOOD GAS 95.6 % (95.0-100.0); OXYGEN RECEIVED, BLOOD GAS 100% VENT; PCO2, BLOOD GAS 48.6 mmHg (35-45); PH, BLOOD GAS 7.12 (7.35-7.45); PO2, BLOOD GAS 88 mmHg (80-100); TOTAL CO2, BLOOD GAS 17.6
[2024-08-28] MEDS ORDERED: AMIODARONE HCL 150 MG/3 ML VIAL IV ONE
[2024-08-28 00:10] LABS: ANION GAP 21.9 (7-21); BUN/CREATININE RATIO 11.85 (6.0-28.6); CALCIUM 8.8 mg/dL (8.5-10.1); CREATININE, SERUM 3.88 mg/dL (0.55-1.02); POTASSIUM 5.9 mmol/L (3.5-5.1)
[2024-08-28] MEDS ORDERED: METOPROLOL TARTRATE 5 MG/5 ML VIAL ONE (00:22)
[2024-08-28] MEDS ORDERED: METOPROLOL TARTRATE 5 MG/5 ML VIAL IV ONE ×2 (00:30→00:45)
[2024-08-28] MEDS ORDERED: SODIUM BICARBONATE 50 MEQ/50 ML VIAL ONE (00:41)
[2024-08-28] MEDS ORDERED: SODIUM BICARBONATE 100 MEQ in DEXTROSE 5% 1,000 ML IV SCH (00:45)
[2024-08-28] MEDS ORDERED: DEXTROSE 50% 50 ML SYR IV ONE (01:00)
[2024-08-28] MEDS ORDERED: Insulin Regular, Human 100 UNIT/ML ML IV ONE (01:00)
[2024-08-28] MEDS ORDERED: ALBUTEROL SULFATE 0.5% 2.5 MG/0.5 ML VIAL INH ONE (01:00)
[2024-08-28] MEDS ORDERED: PIPERACILLIN/TAZOBACTAM 3.375 GM in DEXTROSE 5% 100 ML IV ONE (02:30)
[2024-08-28] MEDS ORDERED: DEXTROSE 5% 100 ML IV ONE (02:32)
[2024-08-28 02:33] VITALS: BP 96/69
[2024-08-28] MEDS ORDERED: AMIODARONE/DEXTROSE 200 ML IV ONE (05:02)
[2024-08-28] MEDS ORDERED: AMIODARONE HCL 180 MG in DEXTROSE 5% 96.4 ML IV ONE (17:02)
--- NOTE | 2024-08-30 14:39 | EKG ---
[facility] [address] [place] [address] Signed Age and gender specific ECG analysis Sinus tachycardia Rightward axis Incomplete right bundle branch block ST elevation, consider inferior injury or acute infarct ACUTE SD / STEMI Consider right ventricular involvement in acute inferior infarct Abnormal ECG When compared with ECG of 11-AUG-2024 02:35, Vent. rate has increased BY 47 BPM Incomplete right bundle branch block is now present Minimal criteria for Anterior infarct are no longer present Confirmed by Nick Byrne MD ([id number]) on 08/30/2024 2:38:48 PM Electronically Signed By: NICK BYRNE DO 08/30/24 1439 PATIENT NAME: CAPRICE HAWKINS Electrocardiogram DATE OF : 89 PHYSICIAN: NICK BYRNE DO REPORT #: [id number] REPORT IS CONFIDENTIAL AND NOT TO BE RELEASED WITHOUT AUTHORIZATION
--- NOTE | 2024-08-30 14:39 | EKG ---
[facility] [address] [place] [address] Signed Age and gender specific ECG analysis Undetermined rhythm Low voltage QRS Septal infarct , age undetermined Lateral injury pattern ACUTE PA / STEMI Abnormal ECG When compared with ECG of 27-AUG-2024 21:28, (Unconfirmed) Current undetermined rhythm precludes rhythm comparison, needs review Incomplete right bundle branch block is no longer present Septal infarct is now present Confirmed by Nick Byrne MD ([id number]) on 08/30/2024 2:39:12 PM Electronically Signed By: NICK BYRNE DO 08/30/24 1439 PATIENT NAME: CAPRICE HAWKINS Electrocardiogram DATE OF : 89 PHYSICIAN: NICK BYRNE DO REPORT #: [id number] REPORT IS CONFIDENTIAL AND NOT TO BE RELEASED WITHOUT AUTHORIZATION
== END 2024-08-28 03:00 | disposition short-term general hospital (02) ==
LOC: ED 20:50
PROVIDERS: Family Medicine
DX: T50.901A Poisoning by unspecified drugs, medicaments and biological substances, accidental (unintentional), initial encounter (principal); I46.9 Cardiac arrest, cause unspecified; J69.0 Pneumonitis due to inhalation of food and vomit; N19 Unspecified kidney failure; E87.20 Acidosis, unspecified; M32.14 Glomerular disease in systemic lupus erythematosus; J98.19 Other pulmonary collapse; I21.A1 Myocardial infarction type 2; E11.9 Type 2 diabetes mellitus without complications; E87.5 Hyperkalemia; F17.200 Nicotine dependence, unspecified, uncomplicated; Z88.8 Allergy status to other drugs, medicaments and biological substances; Z79.899 Other long term (current) drug therapy
CPT/HCPCS: 31500; 36415; 36556; 36600; 51702; 70450; 71045; 71250; 80048; 80053; 80307; 81001; 82803; 83605; 83735; 84443; 84484; 84703; 85025; 87502; 93005; 93010; 94644; 94645; 99285-25; G0480; J0282; J0612; J1815; J2543; J3490; J7070; U0002